=== PATIENT | female | born 1965 | race Caucasian/White ===

== ENCOUNTER 2017-07-21 11:28 | Inpatient (IN) | payer BC ==
[~2017-07-21] VITALS: Ht 162.6 cm; Wt 83.2 kg
[~2017-07-21 11:28] MED LIST: ASPI-630 PO; ATORVASTATIN CA80 MG PO; CARV25TA2 PO; CHOL2000 PO; LISI-334 PO; METF-620 PO
[2017-07-21] MEDS ORDERED: ASPIRIN CHEWABLE 81 MG TABLET. PO ONE (12:00)
[2017-07-21 12:35] LABS: BASO # 0.1 x10^3/uL (0.0-0.2); BASO % 1 % (0-3); EOS % 2 % (0-3); HEMATOCRIT 39.1 % (36.0-47.0); LYMPH % 20 % (24-48); MEAN CORPUSCULAR HEMOGLOBIN 30 pg (25-35); MEAN CORPUSCULAR HGB CONC 33 g/dL (31-37); MEAN CORPUSCULAR VOLUME 90 fL (79-100); MONO % 7 % (0-9); NEUT % 71 % (31-73); PLATELET COUNT 333 x10^3/uL (140-400); RED BLOOD COUNT 4.33 x10^6/uL (3.50-5.40); WHITE BLOOD COUNT 14.6 x10^3/uL (4.0-11.0)
[2017-07-21 12:39] LABS: CALCIUM 9.7 mg/dL (8.5-10.1); CREATININE 0.8 mg/dL (0.6-1.0); POTASSIUM 4.3 mmol/L (3.5-5.1)
[2017-07-21 12:45] LABS: ALBUMIN 3.6 g/dL (3.4-5.0); DIRECT BILIRUBIN 0.1 mg/dL (0.0-0.2); TOTAL PROTEIN 7.6 g/dL (6.4-8.2)
--- NOTE | 2017-07-21 12:50 | EKG ---
[facility] [address] [place] [address] Test Date: 2017-07-21 Test Time: 11:39:28 Pat Name: JO KAUR Department: Room: Gender: F Aircraft Structural Repairer: : 1965 Requested By: Nova PEREZ Order Number: [id number] Reading MD: Maya Oconnor Measurements Intervals [place] Rate: 79 P: 0 IN: 128 QRS: -59 QRSD: 70 T: 1 QT: 408 QTc: 469 Interpretive Statements DUAL CHAMBER PACEMAKER A AND V PACED AT 80 PER MIN Electronically Signed On 07-25-2017 9:14:50 CDT by Maya Oconnor
--- NOTE | 2017-07-21 13:05 | RAD ---
Portable chest, 07/21/2017: History: Chest pain Comparison is made to a study from 09/14/2015. A left-sided transvenous pacemaker remains in place with 3 leads extending into the heart. The heart is at the upper limits of normal in size. The pulmonary vascularity is normal. No pulmonary infiltrates are seen. There is no evidence of pleural fluid. IMPRESSION: 1. Borderline cardiomegaly. 2. No acute abnormality is detected.
--- NOTE | 2017-07-21 14:41 | PHYS DOC ---
Past Medical History Past Medical History: Bronchitis, Diabetes-Type II, High Cholesterol, Hypertension Additional Past Medical Histor: non-ischemic cardiomyopathy, URETHRAL STENT Past Surgical History: Pacemaker Additional Past Surgical Histo: left eye retina Alcohol Use: None Drug Use: None Adult General Chief Complaint Chief Complaint: CHEST WALL PAIN HPI HPI Patient is a 51 year old email with the central chest discomfort and shortness of breath that has been ongoing for 2 weeks and is getting progressively worse. Patient denies any fevers, chills, rashes, sick contacts. Patient has not had recent catheterization or stress test. Last time she had a stress test was 3 years ago. Patient denies any new leg swelling or leg pain. Patient does not describe any radiation of the pain or nausea or vomiting. Review of Systems Review of Systems Constitutional: Denies fever or chills [] HENT: Denies nasal congestion or sore throat no neck pain Respiratory: Yes to shortness of air Cardiovascular: No additional information not addressed in HPI [] GI: Denies abdominal pain, nausea, vomiting, bloody stools or diarrhea [] : Denies dysuria or hematuria [] Musculoskeletal: Denies back pain or joint pain [] Integument: Denies rash or skin lesions [] Neurologic: Denies headache, focal weakness or sensory changes [] Current Medications Current Medications Current Medications Medications (Trade) Dose Ordered Sig/Margot Start Time Stop Time Status Last Admin Dose Admin Aspirin (Children'S Aspirin) 324 mg 1X ONCE 07/21/17 12:00 07/21/17 12:01 DC 07/21/17 12:03 324 MG Allergies Allergies Allergies Coded Allergies Type Severity Reaction Last Updated Verified hydrocodone Adverse Reaction Intermediate "nausea/vomiting" 06/13/15 Yes Physical Exam Physical Exam Constitutional: Well developed, well nourished, no acute distress, non-toxic appearance. [] HENT: Normocephalic, atraumatic, , oropharynx moist, no oral exudates, nose normal. [] Eyes: EOMI, conjunctiva normal, no discharge. [] Neck: Normal range of motion, no tenderness, supple, no stridor. No JVD Cardiovascular:Heart rate regular rhythm, no murmur, normal perfusion, equal pulses Lungs & Thorax: Bilateral breath sounds clear to auscultation, no tachypnea Abdomen: Bowel sounds normal, soft, no tenderness, no masses, no pulsatile masses. [] Skin: Warm, dry, no erythema, no rash. [] Back: No tenderness, no CVA tenderness. [] Extremities: No tenderness, no cyanosis, no DVT, ROM intact, no edema. [] Neurologic: Alert and oriented X 3, normal motor function, , no focal deficits noted. [] Psychologic: Affect normal, judgement normal, mood normal. [] Current Patient Data Vital Signs Vital Signs Date Time Temp Pulse Resp B/P (MAP) Pulse Ox O2 Delivery O2 Flow Rate FiO2 07/21/17 11:40 98.4 71 16 139/65 (89) 98 Room Air 98.4 Lab Values Laboratory Tests Test 07/21/17 12:20 White Blood Count 14.6 x10^3/uL (4.0-11.0) H Red Blood Count 4.33 x10^6/uL (3.50-5.40) Hemoglobin 13.0 g/dL (12.0-15.5) Hematocrit 39.1 % (36.0-47.0) Mean Corpuscular Volume 90 fL (79-100) Mean Corpuscular Hemoglobin 30 pg (25-35) Mean Corpuscular Hemoglobin Concent 33 g/dL (31-37) Red Cell Distribution Width 13.0 % (11.5-14.5) Platelet Count 333 x10^3/uL (140-400) Neutrophils (%) (Auto) 71 % (31-73) Lymphocytes (%) (Auto) 20 % (24-48) L Monocytes (%) (Auto) 7 % (0-9) Eosinophils (%) (Auto) 2 % (0-3) Basophils (%) (Auto) 1 % (0-3) Neutrophils # (Auto) 10.3 x10^3uL (1.8-7.7) H Lymphocytes # (Auto) 3.0 x10^3/uL (1.0-4.8) Monocytes # (Auto) 1.0 x10^3/uL (0.0-1.1) Eosinophils # (Auto) 0.2 x10^3/uL (0.0-0.7) Basophils # (Auto) 0.1 x10^3/uL (0.0-0.2) Sodium Level 139 mmol/L (136-145) Potassium Level 4.3 mmol/L (3.5-5.1) Chloride Level 104 mmol/L (98-107) Carbon Dioxide Level 21 mmol/L (21-32) Anion Gap 14 (6-14) Blood Urea Nitrogen 19 mg/dL (7-20) Creatinine 0.8 mg/dL (0.6-1.0) Estimated GFR (Cockcroft-Gault) 75.0 Glucose Level 162 mg/dL (70-99) H Calcium Level 9.7 mg/dL (8.5-10.1) Total Bilirubin 1.0 mg/dL (0.2-1.0) Direct Bilirubin 0.1 mg/dL (0.0-0.2) Aspartate Amino Transferase (AST) 14 U/L (15-37) L Alanine Aminotransferase (ALT) 37 U/L (14-59) Alkaline Phosphatase 74 U/L (46-116) Troponin I Quantitative < 0.017 ng/mL (0.000-0.055) Total Protein 7.6 g/dL (6.4-8.2) Albumin 3.6 g/dL (3.4-5.0) Laboratory Tests 07/21/17 12:20 Laboratory Tests 07/21/17 12:20 EKG EKG 1145 79 paced rhythm,no stemi, lbbb[] Radiology/Procedures Radiology/Procedures History: Chest pain Comparison is made to a study from 09/14/2015. A left-sided transvenous pacemaker remains in place with 3 leads extending into the heart. The heart is at the upper limits of normal in size. The pulmonary vascularity is normal. No pulmonary infiltrates are seen. There is no evidence of pleural fluid. IMPRESSION: 1. Borderline cardiomegaly. 2. No acute abnormality is detected.[] Course & Med Decision Making Course & Med Decision Making Pertinent Labs and Imaging studies reviewed. (See chart for details) Patient was informed regarding the plan patient is agreeable for admission for telemetry in office. Patient has been discussed with cardiology who recommends admission for patient to the stress test can be done in the morning. (Dr Augustin's PA) Patient has been admitted to the PCP Dick [] Christa Disclaimer Dragon Disclaimer This electronic medical record was generated, in whole or in part, using a voice recognition dictation system. Departure Departure Impression: Primary Impression: Chest pain Additional Impression: Dyspnea Disposition: ADMITTED INPATIENT Admitting Physician: Yrn Serrano Condition: STABLE Referrals: YRN SERRANO MD (PCP) Problem Qualifiers Nova PEREZ MD Jul 21, 2017 14:40
[2017-07-21] MEDS ORDERED: ONDANSETRON PF 4 MG/2 ML VIAL. IV PRN (14:45)
--- NOTE | 2017-07-21 15:39 | PDOC2 ---
CARDIAC CONSULT DATE OF CONSULT Date of Consult DATE: 07/21/17 TIME: 15:12 REASON FOR CONSULT Reason for Consult: Chest pain REFERRING PHYSICIAN Referring Physician: Bang SOURCE Source: Chart review, Patient HISTORY OF PRESENT ILLNESS HISTORY OF PRESENT ILLNESS This is a pleasant 51 yo female admitted for complains of chest tightness. Reports that in the last 2 weeks she has been feeling this tightness kind of like band type sensation around her rib cage region. Reports of intermittent PND but no orthopnea but she does lay on her side and not supine. She has been noted to be snoring frequently. also noted with bloating and slight edema to her LE. Denies any radiating discomfort from her chest but positive for nausea and SOA which started about a week ago. It does not hurt when she takes a deep breath but it feels like she is catching her breath. Denies any overhydration and no fluids >2L and she watches her salt intake. She does take her cardiac meds regularly. She is significant for NICM. She has a BiV/INDUSTRIAL MAINTENANCE MECHANIC-p. Denies any recent long distance travel, falls, injury. No hx of VTE, CAD. PAST MEDICAL HISTORY Cardiovascular: AFIB (paroxysmal), CHF, HTN, Hyperlipidemia, Other (NICM) Pulmonary: No pertinent hx CENTRAL NERVOUS SYSTEM: Other (No pertinent history) Heme/Onc: No pertinent hx Hepatobiliary: No pertinent hx Psych: No pertinent hx Musculoskeletal: Osteoarthritis Rheumatologic: No pertinent hx Infectious disease: No pertinent hx ENT: Allergic Rhinitis, Other (left detached retina/blind) Renal/: Chronic renal insuff (CKD2) Endocrine: Diabetes (2) Dermatology: No pertinent hx PAST SURGICAL HISTORY Past Surgical History: Pacemaker (Bi-V/ICD 2003 and recent gen change 4 yrs ago ), Other (ureteral stent) FAMILY HISTORY Family History: Coronary Artery Disease, Heart Disease (mother) SOCIAL HISTORY Smoke: No ALCOHOL: none Drugs: None Lives: with Family CURRENT MEDICATIONS CURRENT MEDICATIONS Current Medications Medications (Trade) Dose Ordered Sig/Margot Route PRN Reason Start Time Stop Time Status Last Admin Dose Admin Aspirin (Children'S Aspirin) 324 mg 1X ONCE PO 07/21/17 12:00 07/21/17 12:01 DC 07/21/17 12:03 ALLERGIES ALLERGIES: Coded Allergies: hydrocodone (Verified Adverse Reaction, Intermediate, "nausea/vomiting", ) ROS Review of System 14 point ROS evaluated with pertinent positives noted per HPI PHYSICAL EXAM General: Alert, Oriented X3, Cooperative, No acute distress HEENT: Atraumatic, Mucous membr. moist/pink Lungs: Clear to auscultation, Normal air movement Heart: Regular rate (B--V pacing), Normal S1, Normal S2 Abdomen: Soft, No tenderness Extremities: No cyanosis, Other (1-2+ bilateral LE pitting edema) Skin: No breakdown, No significant lesion Neuro: Normal speech, Sensation intact Psych/Mental Status: Mental status NL, Mood NL MUSCULOSKELETAL: Osteoarthritic changes both hands VITALS VITALS Vital Signs Date Time Temp Pulse Resp B/P (MAP) Pulse Ox O2 Delivery O2 Flow Rate FiO2 07/21/17 11:40 98.4 71 16 139/65 (89) 98 Room Air 98.4 LABS Lab: Laboratory Tests Test 07/21/17 12:20 White Blood Count 14.6 x10^3/uL (4.0-11.0) Red Blood Count 4.33 x10^6/uL (3.50-5.40) Hemoglobin 13.0 g/dL (12.0-15.5) Hematocrit 39.1 % (36.0-47.0) Mean Corpuscular Volume 90 fL (79-100) Mean Corpuscular Hemoglobin 30 pg (25-35) Mean Corpuscular Hemoglobin Concent 33 g/dL (31-37) Red Cell Distribution Width 13.0 % (11.5-14.5) Platelet Count 333 x10^3/uL (140-400) Neutrophils (%) (Auto) 71 % (31-73) Lymphocytes (%) (Auto) 20 % (24-48) Monocytes (%) (Auto) 7 % (0-9) Eosinophils (%) (Auto) 2 % (0-3) Basophils (%) (Auto) 1 % (0-3) Neutrophils # (Auto) 10.3 x10^3uL (1.8-7.7) Lymphocytes # (Auto) 3.0 x10^3/uL (1.0-4.8) Monocytes # (Auto) 1.0 x10^3/uL (0.0-1.1) Eosinophils # (Auto) 0.2 x10^3/uL (0.0-0.7) Basophils # (Auto) 0.1 x10^3/uL (0.0-0.2) Sodium Level 139 mmol/L (136-145) Potassium Level 4.3 mmol/L (3.5-5.1) Chloride Level 104 mmol/L (98-107) Carbon Dioxide Level 21 mmol/L (21-32) Anion Gap 14 (6-14) Blood Urea Nitrogen 19 mg/dL (7-20) Creatinine 0.8 mg/dL (0.6-1.0) Estimated GFR (Cockcroft-Gault) 75.0 Glucose Level 162 mg/dL (70-99) Calcium Level 9.7 mg/dL (8.5-10.1) Total Bilirubin 1.0 mg/dL (0.2-1.0) Direct Bilirubin 0.1 mg/dL (0.0-0.2) Aspartate Amino Transf (AST/SGOT) 14 U/L (15-37) Alanine Aminotransferase (ALT/SGPT) 37 U/L (14-59) Alkaline Phosphatase 74 U/L (46-116) Troponin I Quantitative < 0.017 ng/mL (0.000-0.055) Total Protein 7.6 g/dL (6.4-8.2) Albumin 3.6 g/dL (3.4-5.0) ECHOCARDIOGRAM ECHOCARDIOGRAM <Conclusion> The systolic function is moderately impaired. The Ejection Fraction is 35-40%. There is a pacemaker lead in the right ventricle. Doppler and Color Flow revealed mild tricuspid regurgitation. The PA pressure was estimated at 28 mmHg. DATE: 12/22/16905 ASSESSMENT/PLAN ASSESSMENT/PLAN 1. Chest pain: mixed features 2. Acute on chronic systolic CHF: likely SAWYER is a factor 3. NICM: Recent TTE with EF 35-40% 4. 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 presently BiV pacing. Normal function device per interrogation. 5. Hx of PSVT: notable for SVT/atrial flutter from past interrogation but none noted with current check. 6. HTN: controlled 7. DM2 8. Suspect CKD2 Recommendations 1. TSH, lipids, Mg, A1C, trend troponin. UA 2. Lasix IV x1 3. Will need outpt SAWYER workup 4. MPI tomorrow. 5. Continue with home ECASA, coreg, and lisinopril, lipitor Problems: LEONIDAS WHITE GLASS SANDER Jul 21, 2017 15:39
[2017-07-21] MEDS ORDERED: FUROSEMIDE 40 MG/4 ML VIAL. IVP ONE (15:45)
[2017-07-21] MEDS ORDERED: MAGNESIUM SULFATE 4GM 100 ML IV ONE (16:45)
[2017-07-21 16:49] VITALS: BP 108/62
[2017-07-21] MEDS: CARVEDILOL 12.5 MG TABLET. PO SCH (17:58)
[2017-07-21 19:35] VITALS: BP 94/42
[2017-07-21 20:06] VITALS: BP 94/42
[2017-07-21] MEDS: ATORVASTATIN CALCIUM 40 MG TABLET. PO SCH (20:12)
[2017-07-21 23:20] VITALS: BP 92/49
[2017-07-22 03:10] VITALS: BP 108/49
[2017-07-22 03:26] LABS: BASO % 0 % (0-3); EOS % 2 % (0-3); HEMOGLOBIN 12.9 g/dL (12.0-15.5); LYMPH # 3.3 x10^3/uL (1.0-4.8); LYMPH % 24 % (24-48); MEAN CORPUSCULAR HEMOGLOBIN 30 pg (25-35); MEAN CORPUSCULAR HGB CONC 33 g/dL (31-37); MEAN CORPUSCULAR VOLUME 90 fL (79-100); MONO % 10 % (0-9); NEUT % 65 % (31-73); PLATELET COUNT 355 x10^3/uL (140-400); RED BLOOD COUNT 4.35 x10^6/uL (3.50-5.40); RED CELL DISTRIBUTION WIDTH 13.1 % (11.5-14.5); WHITE BLOOD COUNT 13.6 x10^3/uL (4.0-11.0)
[2017-07-22 03:55] LABS: CALCIUM 9.9 mg/dL (8.5-10.1); CREATININE 1.3 mg/dL (0.6-1.0); GFR 42.8; POTASSIUM 4.9 mmol/L (3.5-5.1)
[2017-07-22 07:00] VITALS: BP 98/54
[2017-07-22] MEDS ORDERED: REGADENOSON 0.4 MG/5 ML DISP.SYRIN. IV ONE ×2 (08:05→08:30)
[2017-07-22] MEDS ORDERED: ASPIRIN CHEWABLE 81 MG TABLET. PO SCH (09:00)
--- NOTE | 2017-07-22 10:15 | PDOC1 ---
History and Physical Date of Admission Date of Admission 07/21/17 Identification/Chief Complaint Chief Complaint chest pain Problems: Source Source: Chart review, Patient History of Present Illness History of Present Illness Patient is a 51 year old Female with the central chest discomfort and shortness of breath that has been ongoing for 2 weeks and is getting progressively worse feeling this tightness kind of like band type sensation around her rib cage region.. Patient denies any fevers, chills, rashes, sick contacts some SOB starting week ago. Last time she had a stress test was 3 years ago. Patient denies any new leg swelling or leg pain. Patient does not describe any radiation of the pain or nausea or vomiting. Past Medical History Cardiovascular: AFIB (paroxysmal), CHF, HTN, Hyperlipidemia, Other (NICM) Pulmonary: No pertinent hx CENTRAL NERVOUS SYSTEM: Other (No pertinent history) Heme/Onc: No pertinent hx Hepatobiliary: No pertinent hx Psych: No pertinent hx Rheumatologic: No pertinent hx Infectious disease: No pertinent hx ENT: Allergic Rhinitis, Other (left detached retina/blind) Renal/: Chronic renal insuff (CKD2) Endocrine: Diabetes (2) Dermatology: No pertinent hx Past Surgical History Past Surgical History: Pacemaker (Bi-V/ICD 2003 and recent gen change 4 yrs ago ), Other (ureteral stent) Family History Family History: Coronary Artery Disease, Heart Disease (mother) Social History Smoke: No ALCOHOL: none Drugs: None Current Problem List Problem List Problems Medical Problems: (1) Dyspnea Status: Acute Current Medications Current Medications Current Medications Medications (Trade) Dose Ordered Sig/Margot Start Time Stop Time Status Last Admin Dose Admin Aspirin (Children'S Aspirin) 81 mg DAILY 07/22/17 09:00 07/22/17 09:00 DC Aspirin (Ecotrin) 81 mg [id number] 07/22/17 08:00 Atorvastatin Calcium (Lipitor) 80 mg QHS 07/21/17 21:00 07/21/17 20:12 80 MG Carvedilol (Coreg) 25 mg BIDWMEALS 07/21/17 17:00 07/21/17 17:58 25 MG Furosemide (Lasix) 40 mg 1X ONCE 07/21/17 15:45 07/21/17 15:46 DC 07/21/17 15:52 40 MG Lisinopril (Prinivil) 20 mg DAILY 07/22/17 09:00 Magnesium Sulfate/ Dextrose 100 ml @ 25 mls/hr 1X ONCE 07/21/17 16:45 07/21/17 20:44 DC 07/21/17 17:58 25 MLS/HR Ondansetron HCl (Zofran) 4 mg PRN Q8HRS PRN 07/21/17 14:45 07/22/17 14:44 Regadenoson (Lexiscan) 0.4 mg STK-MED ONCE 07/22/17 08:05 07/22/17 08:06 DC Allergies Allergies Allergies Coded Allergies Type Severity Reaction Last Updated Verified hydrocodone Adverse Reaction Intermediate "nausea/vomiting" 06/13/15 Yes ROS Review of System CONSTITUTIONAL: No fever or chills EYES: No recent changes SKIN: No rash or itching CARDIOVASCULAR: see HPI RESPIRATORY: some VUONG and SOB during last week, no cough GASTROINTESTINAL: No nausea, vomiting or abdominal pain NEUROLOGICAL: No headaches or weakness ENDOCRINE: No cold or heat intolerance GENITOURINARY: No urgency or frequency of urination MUSCULOSKELETAL: chronic arthritis LYMPHATICS: No enlarged lymph nodes Physical Exam Physical Exam GEN.: No apparent distress. Alert and oriented. HEENT: Head is normocephalic, atraumatic NECK: Supple. LUNGS: Clear to auscultation. HEART: RRR, Peripheral pulses intact ABDOMEN: Soft, nontender. Positive bowel sounds. EXTREMITIES: Without any cyanosis. NEUROLOGIC: Normal speech, normal tone PSYCHIATRIC: Normal affect, normal mood. SKIN: No ulcerations Vitals Vitals Vital Signs Date Time Temp Pulse Resp B/P (MAP) Pulse Ox O2 Delivery O2 Flow Rate FiO2 07/22/17 07:00 98.0 71 18 98/54 (69) 98 Room Air 98.0 Labs Labs Laboratory Tests Test 07/21/17 12:20 07/21/17 14:43 07/21/17 17:40 07/21/17 17:43 White Blood Count 14.6 x10^3/uL (4.0-11.0) Red Blood Count 4.33 x10^6/uL (3.50-5.40) Hemoglobin 13.0 g/dL (12.0-15.5) Hematocrit 39.1 % (36.0-47.0) Mean Corpuscular Volume 90 fL (79-100) Mean Corpuscular Hemoglobin 30 pg (25-35) Mean Corpuscular Hemoglobin Concent 33 g/dL (31-37) Red Cell Distribution Width 13.0 % (11.5-14.5) Platelet Count 333 x10^3/uL (140-400) Neutrophils (%) (Auto) 71 % (31-73) Lymphocytes (%) (Auto) 20 % (24-48) Monocytes (%) (Auto) 7 % (0-9) Eosinophils (%) (Auto) 2 % (0-3) Basophils (%) (Auto) 1 % (0-3) Neutrophils # (Auto) 10.3 x10^3uL (1.8-7.7) Lymphocytes # (Auto) 3.0 x10^3/uL (1.0-4.8) Monocytes # (Auto) 1.0 x10^3/uL (0.0-1.1) Eosinophils # (Auto) 0.2 x10^3/uL (0.0-0.7) Basophils # (Auto) 0.1 x10^3/uL (0.0-0.2) Sodium Level 139 mmol/L (136-145) Potassium Level 4.3 mmol/L (3.5-5.1) Chloride Level 104 mmol/L (98-107) Carbon Dioxide Level 21 mmol/L (21-32) Anion Gap 14 (6-14) Blood Urea Nitrogen 19 mg/dL (7-20) Creatinine 0.8 mg/dL (0.6-1.0) Estimated GFR (Cockcroft-Gault) 75.0 Glucose Level 162 mg/dL (70-99) Hemoglobin A1c 6.2 % (4.8-5.6) Calcium Level 9.7 mg/dL (8.5-10.1) Magnesium Level 1.3 mg/dL (1.8-2.4) Total Bilirubin 1.0 mg/dL (0.2-1.0) Direct Bilirubin 0.1 mg/dL (0.0-0.2) Aspartate Amino Transf (AST/SGOT) 14 U/L (15-37) Alanine Aminotransferase (ALT/SGPT) 37 U/L (14-59) Alkaline Phosphatase 74 U/L (46-116) Troponin I Quantitative < 0.017 ng/mL (0.000-0.055) < 0.017 ng/mL (0.000-0.055) < 0.017 ng/mL (0.000-0.055) SP-Ksa-B-Type Natriuretic Peptide 102 pg/mL (0-124) Total Protein 7.6 g/dL (6.4-8.2) Albumin 3.6 g/dL (3.4-5.0) Thyroid Stimulating Hormone (TSH) 5.622 uIU/mL (0.358-3.74) Glucose (Fingerstick) 96 mg/dL (70-99) Test 07/21/17 20:41 07/22/17 03:00 07/22/17 08:03 Glucose (Fingerstick) 146 mg/dL (70-99) 147 mg/dL (70-99) White Blood Count 13.6 x10^3/uL (4.0-11.0) Red Blood Count 4.35 x10^6/uL (3.50-5.40) Hemoglobin 12.9 g/dL (12.0-15.5) Hematocrit 39.0 % (36.0-47.0) Mean Corpuscular Volume 90 fL (79-100) Mean Corpuscular Hemoglobin 30 pg (25-35) Mean Corpuscular Hemoglobin Concent 33 g/dL (31-37) Red Cell Distribution Width 13.1 % (11.5-14.5) Platelet Count 355 x10^3/uL (140-400) Neutrophils (%) (Auto) 65 % (31-73) Lymphocytes (%) (Auto) 24 % (24-48) Monocytes (%) (Auto) 10 % (0-9) Eosinophils (%) (Auto) 2 % (0-3) Basophils (%) (Auto) 0 % (0-3) Neutrophils # (Auto) 8.8 x10^3uL (1.8-7.7) Lymphocytes # (Auto) 3.3 x10^3/uL (1.0-4.8) Monocytes # (Auto) 1.3 x10^3/uL (0.0-1.1) Eosinophils # (Auto) 0.2 x10^3/uL (0.0-0.7) Basophils # (Auto) 0.0 x10^3/uL (0.0-0.2) Sodium Level 139 mmol/L (136-145) Potassium Level 4.9 mmol/L (3.5-5.1) Chloride Level 101 mmol/L (98-107) Carbon Dioxide Level 27 mmol/L (21-32) Anion Gap 11 (6-14) Blood Urea Nitrogen 28 mg/dL (7-20) Creatinine 1.3 mg/dL (0.6-1.0) Estimated GFR (Cockcroft-Gault) 42.8 Glucose Level 118 mg/dL (70-99) Calcium Level 9.9 mg/dL (8.5-10.1) Troponin I Quantitative < 0.017 ng/mL (0.000-0.055) Triglycerides Level 280 mg/dL (0-150) Cholesterol Level 145 mg/dL (0-200) LDL Cholesterol, Calculated 53 mg/dL (0-100) VLDL Cholesterol, Calculated 56 mg/dL (0-40) Non-HDL Cholesterol Calculated 109 mg/dL (0-129) HDL Cholesterol 36 mg/dL (40-60) Cholesterol/HDL Ratio 4.0 Laboratory Tests Test 07/21/17 12:20 07/21/17 14:43 07/21/17 17:40 07/21/17 17:43 White Blood Count 14.6 x10^3/uL (4.0-11.0) Red Blood Count 4.33 x10^6/uL (3.50-5.40) Hemoglobin 13.0 g/dL (12.0-15.5) Hematocrit 39.1 % (36.0-47.0) Mean Corpuscular Volume 90 fL (79-100) Mean Corpuscular Hemoglobin 30 pg (25-35) Mean Corpuscular Hemoglobin Concent 33 g/dL (31-37) Red Cell Distribution Width 13.0 % (11.5-14.5) Platelet Count 333 x10^3/uL (140-400) Neutrophils (%) (Auto) 71 % (31-73) Lymphocytes (%) (Auto) 20 % (24-48) Monocytes (%) (Auto) 7 % (0-9) Eosinophils (%) (Auto) 2 % (0-3) Basophils (%) (Auto) 1 % (0-3) Neutrophils # (Auto) 10.3 x10^3uL (1.8-7.7) Lymphocytes # (Auto) 3.0 x10^3/uL (1.0-4.8) Monocytes # (Auto) 1.0 x10^3/uL (0.0-1.1) Eosinophils # (Auto) 0.2 x10^3/uL (0.0-0.7) Basophils # (Auto) 0.1 x10^3/uL (0.0-0.2) Sodium Level 139 mmol/L (136-145) Potassium Level 4.3 mmol/L (3.5-5.1) Chloride Level 104 mmol/L (98-107) Carbon Dioxide Level 21 mmol/L (21-32) Anion Gap 14 (6-14) Blood Urea Nitrogen 19 mg/dL (7-20) Creatinine 0.8 mg/dL (0.6-1.0) Estimated GFR (Cockcroft-Gault) 75.0 Glucose Level 162 mg/dL (70-99) Hemoglobin A1c 6.2 % (4.8-5.6) Calcium Level 9.7 mg/dL (8.5-10.1) Magnesium Level 1.3 mg/dL (1.8-2.4) Total Bilirubin 1.0 mg/dL (0.2-1.0) Direct Bilirubin 0.1 mg/dL (0.0-0.2) Aspartate Amino Transf (AST/SGOT) 14 U/L (15-37) Alanine Aminotransferase (ALT/SGPT) 37 U/L (14-59) Alkaline Phosphatase 74 U/L (46-116) Troponin I Quantitative < 0.017 ng/mL (0.000-0.055) < 0.017 ng/mL (0.000-0.055) < 0.017 ng/mL (0.000-0.055) CW-Cgz-Q-Type Natriuretic Peptide 102 pg/mL (0-124) Total Protein 7.6 g/dL (6.4-8.2) Albumin 3.6 g/dL (3.4-5.0) Thyroid Stimulating Hormone (TSH) 5.622 uIU/mL (0.358-3.74) Glucose (Fingerstick) 96 mg/dL (70-99) Test 07/21/17 20:41 07/22/17 03:00 9/6/17 08:03 Glucose (Fingerstick) 146 mg/dL (70-99) 147 mg/dL (70-99) White Blood Count 13.6 x10^3/uL (4.0-11.0) Red Blood Count 4.35 x10^6/uL (3.50-5.40) Hemoglobin 12.9 g/dL (12.0-15.5) Hematocrit 39.0 % (36.0-47.0) Mean Corpuscular Volume 90 fL (79-100) Mean Corpuscular Hemoglobin 30 pg (25-35) Mean Corpuscular Hemoglobin Concent 33 g/dL (31-37) Red Cell Distribution Width 13.1 % (11.5-14.5) Platelet Count 355 x10^3/uL (140-400) Neutrophils (%) (Auto) 65 % (31-73) Lymphocytes (%) (Auto) 24 % (24-48) Monocytes (%) (Auto) 10 % (0-9) Eosinophils (%) (Auto) 2 % (0-3) Basophils (%) (Auto) 0 % (0-3) Neutrophils # (Auto) 8.8 x10^3uL (1.8-7.7) Lymphocytes # (Auto) 3.3 x10^3/uL (1.0-4.8) Monocytes # (Auto) 1.3 x10^3/uL (0.0-1.1) Eosinophils # (Auto) 0.2 x10^3/uL (0.0-0.7) Basophils # (Auto) 0.0 x10^3/uL (0.0-0.2) Sodium Level 139 mmol/L (136-145) Potassium Level 4.9 mmol/L (3.5-5.1) Chloride Level 101 mmol/L (98-107) Carbon Dioxide Level 27 mmol/L (21-32) Anion Gap 11 (6-14) Blood Urea Nitrogen 28 mg/dL (7-20) Creatinine 1.3 mg/dL (0.6-1.0) Estimated GFR (Cockcroft-Gault) 42.8 Glucose Level 118 mg/dL (70-99) Calcium Level 9.9 mg/dL (8.5-10.1) Troponin I Quantitative < 0.017 ng/mL (0.000-0.055) Triglycerides Level 280 mg/dL (0-150) Cholesterol Level 145 mg/dL (0-200) LDL Cholesterol, Calculated 53 mg/dL (0-100) VLDL Cholesterol, Calculated 56 mg/dL (0-40) Non-HDL Cholesterol Calculated 109 mg/dL (0-129) HDL Cholesterol 36 mg/dL (40-60) Cholesterol/HDL Ratio 4.0 VTE Prophylaxis Ordered VTE Prophylaxis Devices: No VTE Pharmacological Prophylaxi: No Assessment/Plan Assessment/Plan 1- chest pain, admitted serial enzymes and cardiology consult 2-HTN 3-obesity consider SAWYER 4-acute on chronic systolic CHF 4-DM II 5-CKD II YRN SERRANO MD Jul 22, 2017 10:15
[2017-07-22] MEDS: ASPIRIN ENTERIC COATED 81 MG TABLET.DR. PO SCH (10:51)
[2017-07-22] MEDS: LISINOPRIL 20 MG TABLET PO SCH (10:56)
[2017-07-22] MEDS: CARVEDILOL 12.5 MG TABLET. PO SCH ×3 (10:57→17:07)
[2017-07-22 11:00] VITALS: BP 114/82
[2017-07-22] MEDS ORDERED: CARV12.52 PO (11:02)
--- NOTE | 2017-07-22 12:11 | PDOC ---
LEONIDAS WHITE BAT PERSON 07/22/17 1211: CARDIO Progress Notes Date and Time Date of Service 07/22/2017 Time of Evaluation 1150 Subjective Subjective: No Chest Pain, No shortness of breath, No Palpitations, No Dizziness, Other Vitals Vitals Vital Signs Date Time Temp Pulse Resp B/P (MAP) Pulse Ox O2 Delivery O2 Flow Rate FiO2 07/22/17 11:02 74 07/22/17 10:56 114/82 07/22/17 08:00 Room Air 07/22/17 07:00 98.0 18 98 98.0 Weight Weight [ ] Laboratory Labs Laboratory Tests Test 07/21/17 12:20 07/21/17 14:43 07/21/17 17:40 07/21/17 17:43 White Blood Count 14.6 x10^3/uL (4.0-11.0) Red Blood Count 4.33 x10^6/uL (3.50-5.40) Hemoglobin 13.0 g/dL (12.0-15.5) Hematocrit 39.1 % (36.0-47.0) Mean Corpuscular Volume 90 fL (79-100) Mean Corpuscular Hemoglobin 30 pg (25-35) Mean Corpuscular Hemoglobin Concent 33 g/dL (31-37) Red Cell Distribution Width 13.0 % (11.5-14.5) Platelet Count 333 x10^3/uL (140-400) Neutrophils (%) (Auto) 71 % (31-73) Lymphocytes (%) (Auto) 20 % (24-48) Monocytes (%) (Auto) 7 % (0-9) Eosinophils (%) (Auto) 2 % (0-3) Basophils (%) (Auto) 1 % (0-3) Neutrophils # (Auto) 10.3 x10^3uL (1.8-7.7) Lymphocytes # (Auto) 3.0 x10^3/uL (1.0-4.8) Monocytes # (Auto) 1.0 x10^3/uL (0.0-1.1) Eosinophils # (Auto) 0.2 x10^3/uL (0.0-0.7) Basophils # (Auto) 0.1 x10^3/uL (0.0-0.2) Sodium Level 139 mmol/L (136-145) Potassium Level 4.3 mmol/L (3.5-5.1) Chloride Level 104 mmol/L (98-107) Carbon Dioxide Level 21 mmol/L (21-32) Anion Gap 14 (6-14) Blood Urea Nitrogen 19 mg/dL (7-20) Creatinine 0.8 mg/dL (0.6-1.0) Estimated GFR (Cockcroft-Gault) 75.0 Glucose Level 162 mg/dL (70-99) Hemoglobin A1c 6.2 % (4.8-5.6) Calcium Level 9.7 mg/dL (8.5-10.1) Magnesium Level 1.3 mg/dL (1.8-2.4) Total Bilirubin 1.0 mg/dL (0.2-1.0) Direct Bilirubin 0.1 mg/dL (0.0-0.2) Aspartate Amino Transf (AST/SGOT) 14 U/L (15-37) Alanine Aminotransferase (ALT/SGPT) 37 U/L (14-59) Alkaline Phosphatase 74 U/L (46-116) Troponin I Quantitative < 0.017 ng/mL (0.000-0.055) < 0.017 ng/mL (0.000-0.055) < 0.017 ng/mL (0.000-0.055) QU-Zxz-W-Type Natriuretic Peptide 102 pg/mL (0-124) Total Protein 7.6 g/dL (6.4-8.2) Albumin 3.6 g/dL (3.4-5.0) Thyroid Stimulating Hormone (TSH) 5.622 uIU/mL (0.358-3.74) Glucose (Fingerstick) 96 mg/dL (70-99) Test 07/21/17 20:41 07/22/17 03:00 07/22/17 08:03 Glucose (Fingerstick) 146 mg/dL (70-99) 147 mg/dL (70-99) White Blood Count 13.6 x10^3/uL (4.0-11.0) Red Blood Count 4.35 x10^6/uL (3.50-5.40) Hemoglobin 12.9 g/dL (12.0-15.5) Hematocrit 39.0 % (36.0-47.0) Mean Corpuscular Volume 90 fL (79-100) Mean Corpuscular Hemoglobin 30 pg (25-35) Mean Corpuscular Hemoglobin Concent 33 g/dL (31-37) Red Cell Distribution Width 13.1 % (11.5-14.5) Platelet Count 355 x10^3/uL (140-400) Neutrophils (%) (Auto) 65 % (31-73) Lymphocytes (%) (Auto) 24 % (24-48) Monocytes (%) (Auto) 10 % (0-9) Eosinophils (%) (Auto) 2 % (0-3) Basophils (%) (Auto) 0 % (0-3) Neutrophils # (Auto) 8.8 x10^3uL (1.8-7.7) Lymphocytes # (Auto) 3.3 x10^3/uL (1.0-4.8) Monocytes # (Auto) 1.3 x10^3/uL (0.0-1.1) Eosinophils # (Auto) 0.2 x10^3/uL (0.0-0.7) Basophils # (Auto) 0.0 x10^3/uL (0.0-0.2) Sodium Level 139 mmol/L (136-145) Potassium Level 4.9 mmol/L (3.5-5.1) Chloride Level 101 mmol/L (98-107) Carbon Dioxide Level 27 mmol/L (21-32) Anion Gap 11 (6-14) Blood Urea Nitrogen 28 mg/dL (7-20) Creatinine 1.3 mg/dL (0.6-1.0) Estimated GFR (Cockcroft-Gault) 42.8 Glucose Level 118 mg/dL (70-99) Calcium Level 9.9 mg/dL (8.5-10.1) Troponin I Quantitative < 0.017 ng/mL (0.000-0.055) Triglycerides Level 280 mg/dL (0-150) Cholesterol Level 145 mg/dL (0-200) LDL Cholesterol, Calculated 53 mg/dL (0-100) VLDL Cholesterol, Calculated 56 mg/dL (0-40) Non-HDL Cholesterol Calculated 109 mg/dL (0-129) HDL Cholesterol 36 mg/dL (40-60) Cholesterol/HDL Ratio 4.0 Physical Exam HEENT: Neck Supple W Full Motion Chest: Symmetric LUNGS: Clear to Auscultation Heart: S1S2, RRR (BiV pacing) Abdomen: Soft N/T Extremities: No Edema, No Calf Tenderness Neurology: alert, oriented, follow commands Assessment Assessment 1. Chest pain: mixed features 2. Acute on chronic systolic CHF: Peripheral edema resolved and SOA much better after x1 lasix. Likely SAWYER 3. NICM: Recent TTE with EF 35-40%. compensated. NYHA1-2 4. CAD APPLICATION SUPPORT SPECIALIST-p in situ: [employer]. presently BiV pacing. Normal function device per interrogation. 5. Hx of PSVT: notable for SVT/atrial flutter from past interrogation but none noted with current check. 6. HTN: controlled 7. DM2: A1C 6.2 8. WAQAR on CKD2: prerenal 9. Subclinical hypothyroidism: TSH 5.6 10. Intermittent dyspnea with leukocytosis: reported 1.5 months of has been cleaning fecal bedding of chicken not wearing a mask. Likely airway inflammatory issue. Defer to PCP. Recommendations 1. UOP significant overnight per staff. I & O inaccurate. Will push po fluids. No further lasix at this time 2. Will need outpt SAWYER (features noted) workup 3. MPI pending today and rule out any ischemic process. . 4. Continue with secondary prevention 6. Repeat BMP this afternoon 7. Recommend pulmonary input MONICA BUSCH MD 07/22/17 1721: CARDIO Progress Notes Assessment Assessment Patient seen and examined. Agree with RESEARCH NURSE's assessment and plan. Acute on chronic systolic heart failure better compensated. Lexiscan nuclear stress test did not show any significant ischemia. Continue workup per pulmonary team. LEONIDAS WHITE APRN Jul 22, 2017 12:11 MONICA BUSCH MD Jul 22, 2017 17:21
--- NOTE | 2017-07-22 12:57 | PDOC ---
Provider Note Provider Note DICTATED AMARA MORTON MD Jul 22, 2017 12:57
[2017-07-22] MEDS: BUDESONIDE 0.5 MG/2 ML NEBU. NEB SCH ×2 (13:00→20:02)
--- NOTE | 2017-07-22 13:04 | RAD ---
APPROVED REPORT Test Type: Pharmacological Stress Nurse/Tech: Farrah Medina R.N. Test Indications: Chest tightness and dyspnea Cardiac History: Cardiomyopathy, HTN, PPM Medications: SEE EMR Medical History: SEE EMR Resting ECG: P V-Paced Resting Heart Rate: 67 bpm Resting Blood Pressure: 112/61mmHg Pretest Chest Pain: No chest pain Nurse/Tech Notes S1S2, lungs CTA, denied chest pain or SOA. Consent: The procedure was explained to the patient in lay terms. Informed consent was witnessed. Pawel eout was entered into [employer]. History and Stress Test performed by Farrah Medina R.N. Pharm. Details Pharmacologic stress testing was performed using 0.4mg per 5ml of regadenoson given intravenously ove r 7-10 seconds. Stress Symptoms Nausea. POST EXERCISE Reason for Termination: Infusion complete Max HR: 105 bpm Max Blood Pressure: 121/61mmHg Blood Pressure response to exercise: Normal blood pressure response during stress. Chest Pain: No. Arrhythmia: No. ST Change: No. INTERPRETATION Stress EKG Conclusion: Baseline EKG showed atrial paced rhythm. No diagnostic evidence of ischemia at peak stress. No arrhythmias. Imaging Protocol IMAGE PROTOCOL: Rest Tc-99m/stress Tc-99m 1 day Rest: Stress: Viability: Radiopharm.Tc99m [id number] Sestamibi Dose12.3mCi 33.8mCi Duration 15min. 10min. Img Date 07/22/2017 07/22/2017 Inj-Img [id number]. 60min. Rest Admin Site:IV - Right ForearmAdministrator:SREE Bravo Stress Admin Site: IV - Right ForearmAdministrator: JAVAD Daly, ARRT (R)(N) STRESS DATA End Diast. Vol.98.0mlAv. Heart Rate64.0bpm End Syst. Vol.49.0mlCO Index BSA0.0L/min Myocardial Yutd372.0gEject. Chcrxvtj86.0% Stress Rates Pk. Fill Rate2.42EDV/secLVtime Pk. Fill 285.96msec Pk. Empty Rate2.87ESV/secLVtime Pk. Tekbp585.70msec 11/18 Pk. Fill0.38EDV/sec Stress Scores Regional WT1.00Summed WT22.00 Regional WM0.00Summed WM15.00 LV Perfusion Scintigraphic images showed breast attenuation artifact without any other fixed or reversible defects . Wall Motion Borderline left ventricle systolic function with ejection fraction calculated at 50%. LV Perf. Quant 17 Seg. SSS4.00 17 Seg. SRS2.00 17 Seg. SDS2.00 Stress Defect Extent (% LAD)5.00Rest Defect Extent (% LAD)2.50Rev. Defect Extent (% LAD)0.00 Stress Defect Extent (% LCX) 17.50Rest Defect Extent (% LCX)0.00Rev. Defect Extent (% LCX)0.00 Stress Defect Extent (% RCA)0.00Rest Defect Extent (% RCA)0.00Rev. Defect Extent (% RCA)0.00 Stress Defect Extent (% ELIEL)9.30Rest Defect Extent (% ELIEL)1.70Rev. Defect Extent (% ELIEL)1.70 Conclusion 1. Regadenoson cardioisotope stress test showed breast attenuation artifact without any evidence of i schemia or infarct. 2. Borderline left ventricular systolic function with ejection fraction calculated at 50%. 3. Low risk for cardiac events.
--- NOTE | 2017-07-22 13:22 | CONS ---
DATE OF CONSULTATION: ATTENDING PHYSICIAN: Dr. Linda Jennings. REASON FOR CONSULTATION: Dyspnea. HISTORY OF PRESENT ILLNESS: The patient is a 51-year-old female who has no history of tobacco use. She came into the hospital, complaining of some tightness across her chest. She says she has also been short of breath for the last 2 weeks. The patient has no significant cough. She said she did have some mild sore throat and felt like cold symptoms about a week ago and that lasted for 3 days. She also has an important history that she mentions that for the last 2 months, she has been working around chickens. 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 They had been doing this for the last 2 months. The patient says her co-worker also has a nonresolving cough. The patient was seen by Cardiology and she had a stress test and I do not have the results yet. The patient's chest x-ray did not reveal any obvious infiltrates. No history of asthma, no history of other chronic pulmonary conditions. PAST MEDICAL HISTORY: History of AFib, history of CHF, history of hypertension, hyperlipidemia and history of nonischemic cardiomyopathy. Her last echocardiogram was in 12/2016, which showed an EF of 35%-40%. PAST SURGICAL HISTORY: No recent surgeries. She had in the past pacemaker in 2003, and ureteral stent. FAMILY HISTORY: Noncontributory to lungs. SOCIAL HISTORY: Nonsmoker. ALLERGIES: HYDROCODONE. CURRENT MEDICATIONS: All reviewed, as this is in the MRAD. PHYSICAL EXAMINATION: GENERAL: She is awake, following commands, in no obvious respiratory distress. VITAL SIGNS: Blood pressure stable, pulse ox 97% on room air. NECK: Supple. LUNGS: Clear. CARDIOVASCULAR: Regular rate. ABDOMEN: Soft. EXTREMITIES: With no pitting edema. LABORATORY DATA: Reviewed. White cell count 13.6, hemoglobin 12.9 and platelets are 355. BUN is 19, creatinine 0.8. IMPRESSION: 1. Dyspnea with chest discomfort. This has been going on for last 2 weeks. Her history is also pertinent for exposure to chicken poop for the last 2 months. Her co-worker has a nonresolving cough. Her chest x-ray is clear. It is certainly possible that she may have mild acute hypersensitivity pneumonitis related to exposure to chicken poop. The patient has nonischemic cardiomyopathy, but the chest x-ray does not reveal any evidence of congestive heart failure. 2. No significant history of tobacco use. 3. Chest pain. Cardiology is following, it could be pleuritic from hypersensitivity pneumonitis. Clinically, less likely thromboembolic disease, but we will obtain D-dimer. RECOMMENDATIONS: 1. Obtain a high resolution CT chest. 2. May give a brief trial of steroids if CT chest is abnormal. In the meantime, we will add steroids, nebulizers. 3. Obtain D-dimer. 4. Further recommendations to follow. Discussed with RN. AMARA MORTON MD DR: CAREN/clovis JOB#: [id number] / [id number]
[2017-07-22 15:00] VITALS: BP 109/76
[2017-07-22 15:17] LABS: CALCIUM 9.5 mg/dL (8.5-10.1); CREATININE 0.9 mg/dL (0.6-1.0); GFR 65.5; POTASSIUM 4.3 mmol/L (3.5-5.1)
[2017-07-22] MEDS ORDERED: MAGNESIUM SULFATE 2GM 50 ML IV ONE (16:00)
--- NOTE | 2017-07-22 16:09 | RAD ---
Indication difficulty breathing. Suspect hypersensitivity pneumonitis. Chest CT examination was performed. No prior CT imaging of the chest is available. Note is made of a plain film examination of the chest yesterday. Initially noncontrast conventional images through the chest were obtained. This was followed by high-definition CT images in inspiration and expiration. All images were obtained with the patient supine. On the initial conventional images imaging through the upper abdomen appears unremarkable. There is some pericardial calcification. There are possible thyroid nodules. The finding is not certain and may be artifactual secondary to some streak artifact. If additional evaluation of the thyroid is warranted an ultrasound examination could be performed. The thoracic aorta appears unremarkable. There is no significant hilar or mediastinal adenopathy. An acute parenchymal infiltrate in either lung is not seen. There is no dominant soft tissue mass. On the high definition inspiratory and expiratory images no significant emphysematous changes or fibrotic changes are seen. There is no significant groundglass opacity. No significant air trapping is seen. IMPRESSION: The lungs appear unremarkable. There is no evidence of significant fibrotic or emphysematous change. No significant groundglass opacities are seen. Pericardial calcification PQRS Compliance Statement: One or more of the following individualized dose reduction techniques were utilized for this examination: 1. Automated exposure control 2. Adjustment of the mA and/or kV according to patient size 3. Use of iterative reconstruction technique
[2017-07-22 19:41] VITALS: BP 116/65
[2017-07-22] MEDS: ATORVASTATIN CALCIUM 40 MG TABLET. PO SCH (21:43)
[2017-07-22 22:10] VITALS: BP 96/59
[2017-07-23 02:19] VITALS: BP 102/55
[2017-07-23 07:20] VITALS: BP 118/59
[2017-07-23 07:49] LABS: HEMATOCRIT 38.6 % (36.0-47.0); HEMOGLOBIN 12.8 g/dL (12.0-15.5); RED BLOOD COUNT 4.31 x10^6/uL (3.50-5.40); WHITE BLOOD COUNT 12.5 x10^3/uL (4.0-11.0)
[2017-07-23 07:56] LABS: ALBUMIN 3.5 g/dL (3.4-5.0); ALBUMIN/GLOBULIN RATIO 0.9 (1.0-1.7); CALCIUM 9.5 mg/dL (8.5-10.1); CREATININE 0.9 mg/dL (0.6-1.0); GFR 65.5; POTASSIUM 4.6 mmol/L (3.5-5.1); TOTAL BILIRUBIN 0.8 mg/dL (0.2-1.0); TOTAL PROTEIN 7.6 g/dL (6.4-8.2)
[2017-07-23] MEDS: MAGNESIUM OXIDE 400 MG TABLET PO SCH (09:19)
[2017-07-23] MEDS: ASPIRIN ENTERIC COATED 81 MG TABLET.DR. PO SCH (09:19)
[2017-07-23] MEDS: LISINOPRIL 20 MG TABLET PO SCH (09:20)
[2017-07-23] MEDS: CARVEDILOL 12.5 MG TABLET. PO SCH ×2 (09:20→18:33)
[2017-07-23] MEDS: BUDESONIDE 0.5 MG/2 ML NEBU. NEB SCH ×2 (09:34→20:18)
--- NOTE | 2017-07-23 09:34 | PDOC ---
SUBJECTIVE Subjective feels better, CT chest negative OBJECTIVE Vital Signs Vital Signs Date Time Temp Pulse Resp B/P (MAP) Pulse Ox O2 Delivery O2 Flow Rate FiO2 07/23/17 09:20 72 118/59 07/23/17 09:20 72 118/59 07/23/17 07:20 98.2 49 18 118/59 (78) 94 Room Air 98.2 07/23/17 02:19 98.0 62 18 102/55 (71) 96 Room Air 98.0 07/22/17 22:10 98.3 70 20 96/59 (71) 97 Room Air 98.3 07/22/17 20:00 Room Air 07/22/17 19:59 Room Air 07/22/17 19:41 98.3 77 20 116/65 (82) 98 Room Air 98.3 07/22/17 17:07 68 109/76 07/22/17 15:00 98.1 67 20 109/76 (87) 98 98.1 07/22/17 11:02 74 07/22/17 11:00 98.6 73 18 114/82 (93) 97 98.6 07/22/17 10:56 73 114/82 PHYSICAL EXAM Physical Exam lungs fairly clear heart RRR abd soft ext no edema ASSESSMENT/PLAN Assessment/Plan 1- chest pain and SOB MPI without ischemia possible acute hypersensitivity pneumonitis vs mild exacerbation of CHF 2-HTN 3-obesity consider SAWYER 4-acute on chronic systolic CHF 4-DM II 5-CKD II plan increase activity today , home when ok with pulmonary and c.v Problems: COMMENT Lab Laboratory Tests Test 07/22/17 11:55 07/22/17 14:50 07/22/17 16:57 07/22/17 20:59 Glucose (Fingerstick) 167 mg/dL (70-99) 108 mg/dL (70-99) 151 mg/dL (70-99) Erythrocyte Sedimentation Rate 30 (0-25) D-Dimer (Jessie) 1.73 ug/mlFEU (0.00-0.50) Sodium Level 139 mmol/L (136-145) Potassium Level 4.3 mmol/L (3.5-5.1) Chloride Level 102 mmol/L (98-107) Carbon Dioxide Level 28 mmol/L (21-32) Anion Gap 9 (6-14) Blood Urea Nitrogen 28 mg/dL (7-20) Creatinine 0.9 mg/dL (0.6-1.0) Estimated GFR (Cockcroft-Gault) 65.5 Glucose Level 148 mg/dL (70-99) Calcium Level 9.5 mg/dL (8.5-10.1) Magnesium Level 1.7 mg/dL (1.8-2.4) Test 07/23/17 07:06 07/23/17 07:27 White Blood Count 12.5 x10^3/uL (4.0-11.0) Red Blood Count 4.31 x10^6/uL (3.50-5.40) Hemoglobin 12.8 g/dL (12.0-15.5) Hematocrit 38.6 % (36.0-47.0) Mean Corpuscular Volume 90 fL (79-100) Mean Corpuscular Hemoglobin 30 pg (25-35) Mean Corpuscular Hemoglobin Concent 33 g/dL (31-37) Red Cell Distribution Width 13.0 % (11.5-14.5) Platelet Count 341 x10^3/uL (140-400) Sodium Level 138 mmol/L (136-145) Potassium Level 4.6 mmol/L (3.5-5.1) Chloride Level 103 mmol/L (98-107) Carbon Dioxide Level 22 mmol/L (21-32) Anion Gap 13 (6-14) Blood Urea Nitrogen 25 mg/dL (7-20) Creatinine 0.9 mg/dL (0.6-1.0) Estimated GFR (Cockcroft-Gault) 65.5 BUN/Creatinine Ratio 28 (6-20) Glucose Level 151 mg/dL (70-99) Calcium Level 9.5 mg/dL (8.5-10.1) Total Bilirubin 0.8 mg/dL (0.2-1.0) Aspartate Amino Transf (AST/SGOT) 21 U/L (15-37) Alanine Aminotransferase (ALT/SGPT) 33 U/L (14-59) Alkaline Phosphatase 79 U/L (46-116) Total Protein 7.6 g/dL (6.4-8.2) Albumin 3.5 g/dL (3.4-5.0) Albumin/Globulin Ratio 0.9 (1.0-1.7) Glucose (Fingerstick) 145 mg/dL (70-99) YRN SERRANO MD Jul 23, 2017 09:34
[2017-07-23 11:15] VITALS: BP 95/59
--- NOTE | 2017-07-23 12:10 | PDOC ---
PULMONARY PROGRESS NOTES Subjective feels better Vitals Vital Signs Date Time Temp Pulse Resp B/P (MAP) Pulse Ox O2 Delivery O2 Flow Rate FiO2 07/23/17 11:15 98.3 66 18 95/59 (71) 95 Room Air 98.3 General: Alert, No acute distress Lungs: Clear Cardiovascular: S1 Abdomen: Soft Neuro Exam: Alert Extremities: No Edema Skin: Warm Labs Laboratory Tests Test 07/21/17 12:20 07/21/17 14:43 07/21/17 17:40 07/21/17 17:43 White Blood Count 14.6 x10^3/uL (4.0-11.0) Red Blood Count 4.33 x10^6/uL (3.50-5.40) Hemoglobin 13.0 g/dL (12.0-15.5) Hematocrit 39.1 % (36.0-47.0) Mean Corpuscular Volume 90 fL (79-100) Mean Corpuscular Hemoglobin 30 pg (25-35) Mean Corpuscular Hemoglobin Concent 33 g/dL (31-37) Red Cell Distribution Width 13.0 % (11.5-14.5) Platelet Count 333 x10^3/uL (140-400) Neutrophils (%) (Auto) 71 % (31-73) Lymphocytes (%) (Auto) 20 % (24-48) Monocytes (%) (Auto) 7 % (0-9) Eosinophils (%) (Auto) 2 % (0-3) Basophils (%) (Auto) 1 % (0-3) Neutrophils # (Auto) 10.3 x10^3uL (1.8-7.7) Lymphocytes # (Auto) 3.0 x10^3/uL (1.0-4.8) Monocytes # (Auto) 1.0 x10^3/uL (0.0-1.1) Eosinophils # (Auto) 0.2 x10^3/uL (0.0-0.7) Basophils # (Auto) 0.1 x10^3/uL (0.0-0.2) Sodium Level 139 mmol/L (136-145) Potassium Level 4.3 mmol/L (3.5-5.1) Chloride Level 104 mmol/L (98-107) Carbon Dioxide Level 21 mmol/L (21-32) Anion Gap 14 (6-14) Blood Urea Nitrogen 19 mg/dL (7-20) Creatinine 0.8 mg/dL (0.6-1.0) Estimated GFR (Cockcroft-Gault) 75.0 Glucose Level 162 mg/dL (70-99) Hemoglobin A1c 6.2 % (4.8-5.6) Calcium Level 9.7 mg/dL (8.5-10.1) Magnesium Level 1.3 mg/dL (1.8-2.4) Total Bilirubin 1.0 mg/dL (0.2-1.0) Direct Bilirubin 0.1 mg/dL (0.0-0.2) Aspartate Amino Transf (AST/SGOT) 14 U/L (15-37) Alanine Aminotransferase (ALT/SGPT) 37 U/L (14-59) Alkaline Phosphatase 74 U/L (46-116) Troponin I Quantitative < 0.017 ng/mL (0.000-0.055) < 0.017 ng/mL (0.000-0.055) < 0.017 ng/mL (0.000-0.055) VC-Jfo-K-Type Natriuretic Peptide 102 pg/mL (0-124) Total Protein 7.6 g/dL (6.4-8.2) Albumin 3.6 g/dL (3.4-5.0) Thyroid Stimulating Hormone (TSH) 5.622 uIU/mL (0.358-3.74) Glucose (Fingerstick) 96 mg/dL (70-99) Test 07/21/17 20:41 07/22/17 03:00 07/22/17 08:03 07/22/17 11:55 Glucose (Fingerstick) 146 mg/dL (70-99) 147 mg/dL (70-99) 167 mg/dL (70-99) White Blood Count 13.6 x10^3/uL (4.0-11.0) Red Blood Count 4.35 x10^6/uL (3.50-5.40) Hemoglobin 12.9 g/dL (12.0-15.5) Hematocrit 39.0 % (36.0-47.0) Mean Corpuscular Volume 90 fL (79-100) Mean Corpuscular Hemoglobin 30 pg (25-35) Mean Corpuscular Hemoglobin Concent 33 g/dL (31-37) Red Cell Distribution Width 13.1 % (11.5-14.5) Platelet Count 355 x10^3/uL (140-400) Neutrophils (%) (Auto) 65 % (31-73) Lymphocytes (%) (Auto) 24 % (24-48) Monocytes (%) (Auto) 10 % (0-9) Eosinophils (%) (Auto) 2 % (0-3) Basophils (%) (Auto) 0 % (0-3) Neutrophils # (Auto) 8.8 x10^3uL (1.8-7.7) Lymphocytes # (Auto) 3.3 x10^3/uL (1.0-4.8) Monocytes # (Auto) 1.3 x10^3/uL (0.0-1.1) Eosinophils # (Auto) 0.2 x10^3/uL (0.0-0.7) Basophils # (Auto) 0.0 x10^3/uL (0.0-0.2) Sodium Level 139 mmol/L (136-145) Potassium Level 4.9 mmol/L (3.5-5.1) Chloride Level 101 mmol/L (98-107) Carbon Dioxide Level 27 mmol/L (21-32) Anion Gap 11 (6-14) Blood Urea Nitrogen 28 mg/dL (7-20) Creatinine 1.3 mg/dL (0.6-1.0) Estimated GFR (Cockcroft-Gault) 42.8 Glucose Level 118 mg/dL (70-99) Calcium Level 9.9 mg/dL (8.5-10.1) Troponin I Quantitative < 0.017 ng/mL (0.000-0.055) Triglycerides Level 280 mg/dL (0-150) Cholesterol Level 145 mg/dL (0-200) LDL Cholesterol, Calculated 53 mg/dL (0-100) VLDL Cholesterol, Calculated 56 mg/dL (0-40) Non-HDL Cholesterol Calculated 109 mg/dL (0-129) HDL Cholesterol 36 mg/dL (40-60) Cholesterol/HDL Ratio 4.0 Test 07/22/17 14:50 07/22/17 16:57 07/22/17 20:59 07/23/17 07:06 Erythrocyte Sedimentation Rate 30 (0-25) D-Dimer (Jessie) 1.73 ug/mlFEU (0.00-0.50) Sodium Level 139 mmol/L (136-145) 138 mmol/L (136-145) Potassium Level 4.3 mmol/L (3.5-5.1) 4.6 mmol/L (3.5-5.1) Chloride Level 102 mmol/L (98-107) 103 mmol/L (98-107) Carbon Dioxide Level 28 mmol/L (21-32) 22 mmol/L (21-32) Anion Gap 9 (6-14) 13 (6-14) Blood Urea Nitrogen 28 mg/dL (7-20) 25 mg/dL (7-20) Creatinine 0.9 mg/dL (0.6-1.0) 0.9 mg/dL (0.6-1.0) Estimated GFR (Cockcroft-Gault) 65.5 65.5 Glucose Level 148 mg/dL (70-99) 151 mg/dL (70-99) Calcium Level 9.5 mg/dL (8.5-10.1) 9.5 mg/dL (8.5-10.1) Magnesium Level 1.7 mg/dL (1.8-2.4) Glucose (Fingerstick) 108 mg/dL (70-99) 151 mg/dL (70-99) White Blood Count 12.5 x10^3/uL (4.0-11.0) Red Blood Count 4.31 x10^6/uL (3.50-5.40) Hemoglobin 12.8 g/dL (12.0-15.5) Hematocrit 38.6 % (36.0-47.0) Mean Corpuscular Volume 90 fL (79-100) Mean Corpuscular Hemoglobin 30 pg (25-35) Mean Corpuscular Hemoglobin Concent 33 g/dL (31-37) Red Cell Distribution Width 13.0 % (11.5-14.5) Platelet Count 341 x10^3/uL (140-400) BUN/Creatinine Ratio 28 (6-20) Total Bilirubin 0.8 mg/dL (0.2-1.0) Aspartate Amino Transf (AST/SGOT) 21 U/L (15-37) Alanine Aminotransferase (ALT/SGPT) 33 U/L (14-59) Alkaline Phosphatase 79 U/L (46-116) Total Protein 7.6 g/dL (6.4-8.2) Albumin 3.5 g/dL (3.4-5.0) Albumin/Globulin Ratio 0.9 (1.0-1.7) Test 07/23/17 07:27 07/23/17 11:20 Glucose (Fingerstick) 145 mg/dL (70-99) 175 mg/dL (70-99) Laboratory Tests Test 07/22/17 14:50 07/22/17 16:57 07/22/17 20:59 07/23/17 07:06 Erythrocyte Sedimentation Rate 30 (0-25) D-Dimer (Jessie) 1.73 ug/mlFEU (0.00-0.50) Sodium Level 139 mmol/L (136-145) 138 mmol/L (136-145) Potassium Level 4.3 mmol/L (3.5-5.1) 4.6 mmol/L (3.5-5.1) Chloride Level 102 mmol/L (98-107) 103 mmol/L (98-107) Carbon Dioxide Level 28 mmol/L (21-32) 22 mmol/L (21-32) Anion Gap 9 (6-14) 13 (6-14) Blood Urea Nitrogen 28 mg/dL (7-20) 25 mg/dL (7-20) Creatinine 0.9 mg/dL (0.6-1.0) 0.9 mg/dL (0.6-1.0) Estimated GFR (Cockcroft-Gault) 65.5 65.5 Glucose Level 148 mg/dL (70-99) 151 mg/dL (70-99) Calcium Level 9.5 mg/dL (8.5-10.1) 9.5 mg/dL (8.5-10.1) Magnesium Level 1.7 mg/dL (1.8-2.4) Glucose (Fingerstick) 108 mg/dL (70-99) 151 mg/dL (70-99) White Blood Count 12.5 x10^3/uL (4.0-11.0) Red Blood Count 4.31 x10^6/uL (3.50-5.40) Hemoglobin 12.8 g/dL (12.0-15.5) Hematocrit 38.6 % (36.0-47.0) Mean Corpuscular Volume 90 fL (79-100) Mean Corpuscular Hemoglobin 30 pg (25-35) Mean Corpuscular Hemoglobin Concent 33 g/dL (31-37) Red Cell Distribution Width 13.0 % (11.5-14.5) Platelet Count 341 x10^3/uL (140-400) BUN/Creatinine Ratio 28 (6-20) Total Bilirubin 0.8 mg/dL (0.2-1.0) Aspartate Amino Transf (AST/SGOT) 21 U/L (15-37) Alanine Aminotransferase (ALT/SGPT) 33 U/L (14-59) Alkaline Phosphatase 79 U/L (46-116) Total Protein 7.6 g/dL (6.4-8.2) Albumin 3.5 g/dL (3.4-5.0) Albumin/Globulin Ratio 0.9 (1.0-1.7) Test 07/23/17 07:27 07/23/17 11:20 Glucose (Fingerstick) 145 mg/dL (70-99) 175 mg/dL (70-99) Medications Active Scripts Medications Dose Route/Sig Max Daily Dose Days Date Category Carvedilol 12.5 Mg Tablet 12.5 Mg PO BIDWMEALS 07/22/17 Reported Atorvastatin Calcium 80 Mg Tablet 1 Tab PO DAILY 06/13/15 Reported Aspirin 81 Mg Tab.chew 1 Tab PO DAILY 06/13/15 Reported Vitamin D (Cholecalciferol (Vitamin D3)) 2,000 Unit Capsule 1 Cap PO DAILY 06/13/15 Reported Metformin Hcl 1,000 Mg Tablet 1 Tab PO BID 06/13/15 Reported Lisinopril 20 Mg Tablet 1 Tab PO DAILY 06/13/15 Reported Impression . 1. Dyspnea with chest discomfort. This has been going on for last 2 weeks. Her history is also pertinent for exposure to chicken poop for the last 2 months. Her co-worker has a nonresolving cough. Her chest x-ray is clear. It is certainly possible that she may have mild acute hypersensitivity pneumonitis related to exposure to chicken poop. The patient has nonischemic cardiomyopathy, but the chest x-ray does not reveal any evidence of congestive heart failure. 2. No significant history of tobacco use. 3. Chest pain. Cardiology is following, it could be pleuritic from hypersensitivity pneumonitis. Clinically, less likely thromboembolic disease, 4. Abnormal D-dimer. Plan . 1. high resolution CT chest with no disease 2. nebulizers. 3. abnrmal D-dimer. will do VQ scan 4. suspect she may have reactive airway disease triggered by chicken poop exposure, improved with nebs AMARA MORTON MD Jul 23, 2017 12:10
[2017-07-23] MEDS: IPRATRPIUM/ALBUTEROL 0.5/2.5MG 3 ML NEBU. NEB SCH ×3 (12:37→20:18)
[2017-07-23 15:20] VITALS: BP 88/64
[2017-07-23 19:18] VITALS: BP 105/58
[2017-07-23] MEDS: ATORVASTATIN CALCIUM 40 MG TABLET. PO SCH (20:37)
[2017-07-23 23:42] VITALS: BP 100/57
[2017-07-24 03:24] VITALS: BP 97/59
[2017-07-24 07:00] VITALS: BP 116/49
[2017-07-24] MEDS: IPRATRPIUM/ALBUTEROL 0.5/2.5MG 3 ML NEBU. NEB SCH ×3 (08:00→15:36)
[2017-07-24] MEDS ORDERED: MAGNESIUM OXIDE 400 MG TABLET ONE (08:00)
[2017-07-24] MEDS ORDERED: IPRATRPIUM/ALBUTEROL 0.5/2.5MG 3 ML NEBU. ONE (08:05)
[2017-07-24] MEDS: CARVEDILOL 12.5 MG TABLET. PO SCH (09:13)
[2017-07-24] MEDS: LISINOPRIL 20 MG TABLET PO SCH (09:13)
[2017-07-24] MEDS: ASPIRIN ENTERIC COATED 81 MG TABLET.DR. PO SCH (09:13)
[2017-07-24] MEDS: MAGNESIUM OXIDE 400 MG TABLET PO SCH (09:14)
[2017-07-24] MEDS ORDERED: BUDE0.5A NEB (09:40)
[2017-07-24] MEDS ORDERED: IPRA3AMP NEB (09:40)
--- NOTE | 2017-07-24 09:41 | PDOC ---
SUBJECTIVE Subjective feels better OBJECTIVE Vital Signs Vital Signs Date Time Temp Pulse Resp B/P (MAP) Pulse Ox O2 Delivery O2 Flow Rate FiO2 07/24/17 09:13 65 102/63 07/24/17 09:13 65 102/63 07/24/17 07:00 97.5 64 19 116/49 (71) 96 Room Air 97.5 07/24/17 03:24 97.6 65 16 97/59 (72) 92 Room Air 97.6 07/23/17 23:42 97.4 67 16 100/57 (71) 92 Room Air 97.4 07/23/17 20:20 97 Room Air 07/23/17 20:18 97 Room Air 07/23/17 20:00 Room Air 07/23/17 19:18 98.4 68 18 105/58 (74) 97 Room Air 98.4 07/23/17 18:33 69 104/59 07/23/17 16:15 98 Room Air 07/23/17 15:20 98.0 69 18 88/64 (72) 96 Room Air 98.0 07/23/17 12:39 Room Air 07/23/17 11:15 98.3 66 18 95/59 (71) 95 Room Air 98.3 I & O Intake and Output 07/25/17 07:00 Intake Total 250 ml Balance 250 ml Intake Oral 250 ml PHYSICAL EXAM Physical Exam no change, lungs clear ASSESSMENT/PLAN Assessment/Plan 1- chest pain and SOB MPI without ischemia possible acute hypersensitivity pneumonitis vs mild exacerbation of CHF agree with V/Q scan since her D-Dimer was high 2-HTN 3-obesity consider SAWYER 4-acute on chronic systolic CHF 4-DM II 5-CKD II home if V/Q scan neg, discussed with Dr. Shi Problems: COMMENT Lab Laboratory Tests Test 07/23/17 11:20 07/23/17 16:46 07/23/17 21:06 07/24/17 08:32 Glucose (Fingerstick) 175 mg/dL (70-99) 99 mg/dL (70-99) 174 mg/dL (70-99) 143 mg/dL (70-99) YRN SERRANO MD Jul 24, 2017 09:41
--- NOTE | 2017-07-24 10:06 | RAD ---
Ventilation/perfusion lung scan, 07/24/2017: History: Chest pain The ventilation study was performed utilizing 16.5 mCi xenon-133. The lung activity is symmetric. There is good washout of xenon from the lungs. Perfusion imaging was performed utilizing 6.0 mCi of technetium 99m MAA. A similar pattern of activity is present in the lungs. No significant unmatched or segmental perfusion defects are seen. IMPRESSION: There are no VQ findings to suggest pulmonary emboli.
[2017-07-24 11:00] VITALS: BP_SYST 104; BP_SYST 106; BP_DIAS 30; BP_DIAS 45
[2017-07-24] MEDS: BUDESONIDE 0.5 MG/2 ML NEBU. NEB SCH (11:56)
--- NOTE | 2017-07-24 12:26 | PDOC ---
PULMONARY PROGRESS NOTES Subjective feels better Vitals Vital Signs Date Time Temp Pulse Resp B/P (MAP) Pulse Ox O2 Delivery O2 Flow Rate FiO2 07/24/17 11:56 96 Room Air 07/24/17 11:00 97.9 64 19 106/30 (55) 97.9 General: Alert, No acute distress Lungs: Clear Cardiovascular: S1 Abdomen: Soft Neuro Exam: Alert Extremities: No Edema Skin: Warm Labs Laboratory Tests Test 07/22/17 14:50 07/22/17 16:57 07/22/17 20:59 07/23/17 07:06 Erythrocyte Sedimentation Rate 30 (0-25) D-Dimer (Jessie) 1.73 ug/mlFEU (0.00-0.50) Sodium Level 139 mmol/L (136-145) 138 mmol/L (136-145) Potassium Level 4.3 mmol/L (3.5-5.1) 4.6 mmol/L (3.5-5.1) Chloride Level 102 mmol/L (98-107) 103 mmol/L (98-107) Carbon Dioxide Level 28 mmol/L (21-32) 22 mmol/L (21-32) Anion Gap 9 (6-14) 13 (6-14) Blood Urea Nitrogen 28 mg/dL (7-20) 25 mg/dL (7-20) Creatinine 0.9 mg/dL (0.6-1.0) 0.9 mg/dL (0.6-1.0) Estimated GFR (Cockcroft-Gault) 65.5 65.5 Glucose Level 148 mg/dL (70-99) 151 mg/dL (70-99) Calcium Level 9.5 mg/dL (8.5-10.1) 9.5 mg/dL (8.5-10.1) Magnesium Level 1.7 mg/dL (1.8-2.4) Glucose (Fingerstick) 108 mg/dL (70-99) 151 mg/dL (70-99) White Blood Count 12.5 x10^3/uL (4.0-11.0) Red Blood Count 4.31 x10^6/uL (3.50-5.40) Hemoglobin 12.8 g/dL (12.0-15.5) Hematocrit 38.6 % (36.0-47.0) Mean Corpuscular Volume 90 fL (79-100) Mean Corpuscular Hemoglobin 30 pg (25-35) Mean Corpuscular Hemoglobin Concent 33 g/dL (31-37) Red Cell Distribution Width 13.0 % (11.5-14.5) Platelet Count 341 x10^3/uL (140-400) BUN/Creatinine Ratio 28 (6-20) Total Bilirubin 0.8 mg/dL (0.2-1.0) Aspartate Amino Transf (AST/SGOT) 21 U/L (15-37) Alanine Aminotransferase (ALT/SGPT) 33 U/L (14-59) Alkaline Phosphatase 79 U/L (46-116) Total Protein 7.6 g/dL (6.4-8.2) Albumin 3.5 g/dL (3.4-5.0) Albumin/Globulin Ratio 0.9 (1.0-1.7) Test 07/23/17 07:27 07/23/17 11:20 07/23/17 16:46 07/23/17 21:06 Glucose (Fingerstick) 145 mg/dL (70-99) 175 mg/dL (70-99) 99 mg/dL (70-99) 174 mg/dL (70-99) Test 07/24/17 08:32 07/24/17 10:39 Glucose (Fingerstick) 143 mg/dL (70-99) 219 mg/dL (70-99) Laboratory Tests Test 07/23/17 16:46 07/23/17 21:06 07/24/17 08:32 07/24/17 10:39 Glucose (Fingerstick) 99 mg/dL (70-99) 174 mg/dL (70-99) 143 mg/dL (70-99) 219 mg/dL (70-99) Medications Active Scripts Medications Dose Route/Sig Max Daily Dose Days Date Category Carvedilol 12.5 Mg Tablet 12.5 Mg PO BIDWMEALS 07/22/17 Reported Atorvastatin Calcium 80 Mg Tablet 1 Tab PO DAILY 06/13/15 Reported Aspirin 81 Mg Tab.chew 1 Tab PO DAILY 06/13/15 Reported Vitamin D (Cholecalciferol (Vitamin D3)) 2,000 Unit Capsule 1 Cap PO DAILY 06/13/15 Reported Metformin Hcl 1,000 Mg Tablet 1 Tab PO BID 7/29/15 Reported Lisinopril 20 Mg Tablet 1 Tab PO DAILY 06/13/15 Reported Impression . 1. Dyspnea with chest discomfort. This has been going on for last 2 weeks. Her history is also pertinent for exposure to chicken poop for the last 2 months. Her co-worker has a nonresolving cough. Her chest x-ray is clear. It is certainly possible that she may have mild acute hypersensitivity pneumonitis related to exposure to chicken poop. The patient has nonischemic cardiomyopathy, but the chest x-ray does not reveal any evidence of congestive heart failure. 2. No significant history of tobacco use. 3. Chest pain. Cardiology is following, it could be pleuritic from hypersensitivity pneumonitis. Clinically, less likely thromboembolic disease, 4. Abnormal D-dimer. Plan . 1. high resolution CT chest with no disease 2. nebulizers. 3. abnrmal D-dimer. Neg VQ scan 4. suspect she may have reactive airway disease triggered by chicken poop exposure, improved with nebs ok with dc home today AMARA MORTON MD Jul 24, 2017 12:26
== END 2017-07-24 16:53 | disposition home or self-care (01) | DRG 196 ==
LOC: ER 11:28 → 2 SOUTH 14:32 → OBSVTOIN 14:36
PROVIDERS: ADMIT Internal Medicine; ATTEND Internal Medicine
DX: J67.9 Hypersensitivity pneumonitis due to unspecified organic dust (principal); I50.23 Acute on chronic systolic (congestive) heart failure; N17.9 Acute kidney failure, unspecified; I42.9 Cardiomyopathy, unspecified; E11.22 Type 2 diabetes mellitus with diabetic chronic kidney disease; I48.92 Unspecified atrial flutter; I13.0 Hypertensive heart and chronic kidney disease with heart failure and stage 1 through stage 4 chronic kidney disease, or unspecified chronic kidney disease; E03.9 Hypothyroidism, unspecified; E66.9 Obesity, unspecified; E78.00 Pure hypercholesterolemia, unspecified; E78.5 Hyperlipidemia, unspecified; G47.33 Obstructive sleep apnea (adult) (pediatric); H54.0 Blindness, both eyes; I48.0 Paroxysmal atrial fibrillation; N18.2 Chronic kidney disease, stage 2 (mild); R79.1 Abnormal coagulation profile; Z82.49 Family history of ischemic heart disease and other diseases of the circulatory system; Z95.0 Presence of cardiac pacemaker; J30.9 Allergic rhinitis, unspecified; M19.90 Unspecified osteoarthritis, unspecified site; R06.83 Snoring
CPT/HCPCS: 36415; 51701; 71010; 71250; 78452; 78582; 80048; 80053; 80061; 80076; 82962; 83036; 83735; 83880; 84443; 84484; 85025; 85027; 85379; 85651; 93005; 93017; 94250; 94620; 94640; 94760; 96374; 96375; 96376; A9500; A9540; A9558; G0379; J1940; J2785; J3475; J7060; J7620; J7626; 99285-25

== ENCOUNTER → 2018-10-28 | Outpatient (CLI) | payer OTHER ==
[2017-07-24 11:00] VITALS: BP 104/45
[~2018-10-28] MED LIST changes: +BUDE0.5A NEB; +CARV12.511 PO; +IPRA3AMP29 NEB; -METF-620 PO; +METF10007 PO
--- NOTE | 2018-10-28 18:12 | CARD ---
MR#: [id number] Date of Study: 10/28/2018 Ordering Physician: MONICA BUSCH, Referring Physician: MONICA BUSCH Tech: Dasha Limon RDCS APPROVED REPORT EXAM: Two-dimensional and M-mode echocardiogram with Doppler and color Doppler. Other Information Quality : Good INDICATION Arrhythmia Surgery/Intervention Pacemaker: 2D DIMENSIONS RVDd2.5 (2.9-3.5cm)Left Atrium(2D)3.3 (1.6-4.0cm) IVSd0.8 (0.7-1.1cm)Aortic Root(2D)2.4 (2.0-3.7cm) LVDd4.3 (3.9-5.9cm)LVOT Diameter2.2 (1.8-2.4cm) PWd0.9 (0.7-1.1cm)LVDs3.4 (2.5-4.0cm) FS (%) 22.4 %SV38.5 ml Aortic Valve AoV Peak Gamaliel.180.8cm/sAoV VTI35.7cm AO Peak GR.13.1mmHgLVOT Peak Gamaliel.125.6cm/s AO Mean GR.7mmHgAVA (VMAX)2.57cm2 JOLEEN (VTI)2.60cm2 Mitral Valve MV E Uqcjlina51.6cm/sMV DECEL PUBJ092ds MV A Ciimegal43.8cm/sE/A Ratio0.7 Tricuspid Valve TR P. Uphqrjac573cb/sRAP OFZRPSEK9pmBy TR Peak Gr.91qbElEIPV62bnYf Pulmonary Vein S1 Uxcoewir57.9cm/sD2 Fnkhlzvz68.7cm/s LEFT VENTRICLE The left ventricle is normal size. There is normal left ventricular wall thickness. The left ventricu lar systolic function is normal and the ejection fraction is within normal range. LV ejection fractio n is 50-55%. There is normal LV segmental wall motion. Transmitral Doppler flow pattern is Grade I-ab normal relaxation pattern. RIGHT VENTRICLE The right ventricle is normal size. The right ventricular systolic function is normal. There is a pac emaker lead in the right ventricle. ATRIA The left atrium size is normal. The right atrium size is normal. A pacemaker is seen in the right atr ium consistent with history. The interatrial septum is intact with no evidence for an atrial septal d efect or patent foramen ovale as noted on 2-D or Doppler imaging. AORTIC VALVE The aortic valve is normal in structure and function. Doppler and Color Flow revealed no significant aortic regurgitation. There is no significant aortic valvular stenosis. MITRAL VALVE The mitral valve is normal in structure and function. There is no evidence of mitral valve prolapse. There is no mitral valve stenosis. Doppler and Color-flow revealed trace mitral regurgitation. TRICUSPID VALVE The tricuspid valve is normal in structure and function. Doppler and Color Flow revealed mild tricusp id regurgitation. The PA pressure was estimated at 42 mmHg. There is no tricuspid valve stenosis. PULMONIC VALVE The pulmonic valve is not well visualized. Doppler and Color Flow revealed no pulmonic valvular regur gitation. There is no pulmonic valvular stenosis. GREAT VESSELS The aortic root is normal in size. The ascending aorta is not well seen. The IVC is dilated and colla pses >50% with inspiration. PERICARDIAL EFFUSION There is no evidence of significant pericardial effusion. Critical Notification Critical Value: No <Conclusion> The left ventricle is normal size. The left ventricular systolic function is normal and the ejection fraction is within normal range. LV ejection fraction is 50-55%. There is a pacemaker lead in the right ventricle. The right atrium size is normal. A pacemaker is seen in the right atrium consistent with history. There is no significant aortic valvular stenosis. Doppler and Color Flow revealed no significant aortic regurgitation. Doppler and Color-flow revealed trace mitral regurgitation. Doppler and Color Flow revealed mild tricuspid regurgitation. The PA pressure was estimated at 42 mmHg. Signed by : Chang Montana MD Electronically Approved : 10/28/2018 18:10:51
== END | disposition home or self-care (01) ==
LOC: ECHO 13:52
PROVIDERS: ATTEND Internal Medicine Cardiovascular Disease
DX: I07.1 Rheumatic tricuspid insufficiency (principal); I49.8 Other specified cardiac arrhythmias; Z95.0 Presence of cardiac pacemaker
CPT/HCPCS: 93306

== ENCOUNTER → 2020-04-06 | Outpatient (CLI) | payer OTHER ==
[2017-07-24 11:00] VITALS: BP 104/45
--- NOTE | 2020-04-06 12:07 | CARD ---
MR#: [id number] Date of Study: 04/06/2020 Ordering Physician: MONICA BUSCH, Referring Physician: MONICA BUSCH, Tech: Elizabeth Sierra APPROVED REPORT EXAM: Two-dimensional and M-mode echocardiogram with Doppler and color Doppler. Other Information Quality : AverageHR: 67bpm INDICATION Congestive Heart Failure Surgery/Intervention Pacemaker: Date: 2004 RISK FACTORS Hypertension Hyperlipidemia Diabetes 2D DIMENSIONS Left Atrium(2D)3.3 (1.6-4.0cm)IVSd0.9 (0.7-1.1cm) Aortic Root(2D)2.8 (2.0-3.7cm)LVDd4.9 (3.9-5.9cm) LVOT Diameter1.9 (1.8-2.4cm)PWd1.1 (0.7-1.1cm) LVDs4.0 (2.5-4.0cm)FS (%) 17.9 % SV42.3 mlLVEF(%)37.0 (>50%) Aortic Valve AoV Peak Gamaliel.156.4cm/sAoV VTI28.4cm AO Peak GR.9.8mmHgLVOT Peak Gamaliel.130.3cm/s LVOT VTI 24.46cmAO Mean GR.5mmHg JOELEN (VMAX)1.16bk6GZI (VTI)2.46cm2 Mitral Valve MV E Hyurdsxi59.2cm/sMV DECEL BGUG856lu MV A Hrfucqaw84.9cm/sMV E Mean Gr.1mmHg MV DYX34wrE/A Ratio0.7 MVA (PHT)2.75cm2 TDI E/Lateral E'7.0E/Medial E'11.0 Pulmonary Valve PV Peak Znvradkl45.6cm/sPV Peak Grad.4mmHg Tricuspid Valve TR P. Mjchdkji804ie/sRAP FSQLRZKJ2lsGo TR Peak Gr.02teDnPHST98vzYd Pulmonary Vein S1 Mmnjxbsg61.5cm/sD2 Ldlpabfi83.8cm/s PVa caaokjkx596fbge LEFT VENTRICLE The left ventricle is normal size. There is normal left ventricular wall thickness. The systolic func tion is moderately impaired. EF 40% There is moderate global hypokinesis. Tissue Doppler imaging reve als moderate left ventricular diastolic dysfunction. RIGHT VENTRICLE The right ventricle is normal size. There is normal right ventricular wall thickness. The right ventr icular systolic function is normal. There is a pacemaker lead in the right ventricle. ATRIA The left atrium size is normal. The right atrium is borderline dilated.pacemaker lead seen in the rig ht atrium. The interatrial septum is intact with no evidence for an atrial septal defect or patent fo ramen ovale as noted on 2-D or Doppler imaging. AORTIC VALVE The aortic valve is normal in structure and function. Doppler and Color Flow revealed no significant aortic regurgitation. There is no significant aortic valvular stenosis. MITRAL VALVE The mitral valve is normal in structure and function. There is no evidence of mitral valve prolapse. There is no mitral valve stenosis. Doppler and Color-flow revealed trace mitral regurgitation. TRICUSPID VALVE The tricuspid valve is normal in structure and function. Doppler and Color Flow revealed trace tricus pid regurgitation with an estimated PAP of 28 mmHg. There is no tricuspid valve stenosis. PULMONIC VALVE The pulmonic valve is not well visualized. Doppler and Color Flow revealed no pulmonic valvular regur gitation. There is no pulmonic valvular stenosis. GREAT VESSELS The aortic root is normal in size. The IVC is normal in size and collapses >50% with inspiration. PERICARDIAL EFFUSION There is no evidence of significant pericardial effusion. Critical Notification Critical Value: No <Conclusion> The systolic function is moderately impaired. EF 40% There is moderate global hypokinesis. There is a pacemaker lead in the right ventricle. Signed by : Raimundo Lopez, Electronically Approved : 04/06/2020 12:06:33
== END | disposition home or self-care (01) ==
LOC: ECHO 10:45
PROVIDERS: ATTEND Internal Medicine Cardiovascular Disease
DX: I11.0 Hypertensive heart disease with heart failure (principal); I50.22 Chronic systolic (congestive) heart failure
CPT/HCPCS: 93306

== ENCOUNTER 2020-09-24 13:40 | Emergency (ER) | payer OTHER ==
[~2020-09-24] VITALS: Ht 162.6 cm; Wt 83.0 kg
[2020-09-24] MEDS ORDERED: ASPIRIN 325 MG TABLET PO ONE (14:00)
[2020-09-24 14:04] VITALS: BP 124/74
--- NOTE | 2020-09-24 14:45 | PHYS DOC ---
Past Medical History Past Medical History: Bronchitis, Diabetes-Type II, High Cholesterol, Hyp ertension Additional Past Medical Histor: non-ischemic cardiomyopathy, URETHRAL STENT Past Surgical History: Pacemaker Additional Past Surgical Histo: left eye retina Smoking Status: Never Smoker Alcohol Use: None Drug Use: None General Adult EDM: Chief Complaint: CHEST PAIN HPI: HPI: Patient is a 54 year old female who presents with dull chest pain and pressure that has been going on for a few weeks and getting worse for the last few days. It does get worse with exertion but is not associated with nausea, vomiting, or sweating. It is located in the sternum. The pain is rated 7/10 at its worst and 2/10 at its best. The pain is also associated with SOB and the pt is not sendy lly short of breath. Pt stated that she used an old albuterol inhaler and it made the pain better. Pt has a pacemaker for nonischemic cardiomyopathy from 15 years ago. Pt is scheduled for a stress test next month. Pt also complains of a headache this morning. Review of Systems: Review of Systems: Constitutional: Denies fever or chills Eyes: Denies redness or eye pain HENT: Denies nasal congestion or sore throat Respiratory: Denies cough or wheezing Cardiovascular: Denies palpitations GI: Denies abdominal pain, nausea, or vomiting : Denies dysuria or hematuria Musculoskeletal: Denies back pain or joint pain Integument: Denies rash or skin lesions Neurologic: Denies headache, focal weakness or sensory changes Complete systems were reviewed and found to be within normal limits, except as documented in this note. Heart Score: HEART Score for Chest Pain: HEART Score for Chest Pain Response (Comments) Value History Moderately Suspicious 1 ECG Nonspecific Repolarizatio 1 Age >45 - < 65 1 Risk Factors >3 Risk Factors or Hx CAD 2 Total 5 Risk Factors: Risk Factors: DM, HTN, obesity. Risk Scores: Score 0 - 3: 2.5% MACE over next 6 weeks - Discharge Home Score 4 - 6: 20.3% MACE over next 6 weeks - Admit for Clinical Observation Score 7 - 10: 72.7% MACE over next 6 weeks - Early Invasive Strategies Current Medications: Current Medications Medications (Trade) Dose Ordered Sig/Margot Start Time Stop Time Status Last Admin Dose Admin Aspirin (Marysol Aspirin) 325 mg 1X ONCE 09/24/20 14:00 09/24/20 14:01 DC Allergies: Allergies: Allergies Coded Allergies Type Severity Reaction Last Updated Verified No Known Medication Allergies Allergy Unknown 09/24/20 Yes hydrocodone Adverse Reaction Intermediate "nausea/vomiting" 06/13/15 Yes Physical Exam: PE: Constitutional: Well developed, well nourished, no acute distress, non-toxic appearance HENT: Normocephalic, atraumatic Eyes: Conjunctiva normal, no discharge Neck: Normal range of motion, no tenderness, supple Lungs & Thorax: No respiratory distress, equal chest rise and fall Abdomen: Soft, no tenderness Skin: Warm, dry, no erythema, no rash Back: No tenderness, no CVA tenderness Extremities: No tenderness, ROM intact, no edema Neurologic: Alert and oriented X 3, normal motor function, normal sensory function, no focal deficits noted Psychologic: Affect normal, judgment normal Cardiac: RRR w/ no murmurs, rubs or gallops Current Patient Data: Vital Signs: Vital Signs Date Time Temp Pulse Resp B/P (MAP) Pulse Ox O2 Delivery O2 Flow Rate FiO2 09/24/20 14:04 99.4 72 18 124/74 (91) 96 Room Air 99.4 EKG: EKG: @13:52 sinus rhythm at 75 bpm, Right axis deviation, q wave in 3 and V3-V6, st depression in 1 and aVL, j point elevation in 3 aVF, compared to prior ecg with no significant change Radiology/Procedures: Radiology/Procedures: [] Course & Med Decision Making: Course & Med Decision Making Pertinent Labs and Imaging studies reviewed. (See chart for details) 54 year old female pt presents with chest pain that has been getting worse over the last few days. Labs were reviewed and posted. Patient left AMA. Christa Disclaimer: [email or web address] Disclaimer: This electronic medical record was generated, in whole or in part, using a voice recognition dictation system. Departure Departure Impression: Primary Impression: Chest pain Qualified Codes: R07.9 - Chest pain, unspecified Disposition: 07 AMA/ELOPED/LWBS Condition: GUARDED Referrals: ARMANDO KIRKLAND APRN (PCP) JUNG BROWNLEE DO Sep 24, 2020 14:45
== END 2020-09-24 14:38 | disposition left against medical advice (07) ==
LOC: ER 13:40
DX: R07.2 Precordial pain (principal); R06.02 Shortness of breath; R51.9 Headache, unspecified; E11.9 Type 2 diabetes mellitus without complications; E78.00 Pure hypercholesterolemia, unspecified; I10 Essential (primary) hypertension; Z95.5 Presence of coronary angioplasty implant and graft; Z95.0 Presence of cardiac pacemaker; Z88.5 Allergy status to narcotic agent
CPT/HCPCS: 99283; 99284

== ENCOUNTER → 2020-12-27 | Outpatient (CLI) | payer OTHER ==
[2020-10-02 15:00] VITALS: BP 110/57
[~2020-12-27] MED LIST changes: +GLIP5TAB10 PO; +ISOS30TA19 PO; +ISOS30TA68 PO; +LEVO50TA5 PO; -LISI-334 PO; +LISI20TA18 PO; +METF500T16 PO
[2020-12-27 08:11] LABS: CALCIUM 9.2 mg/dL (8.5-10.1); CREATININE 1.1 mg/dL (0.6-1.0); GFR 51.2; POTASSIUM 4.5 mmol/L (3.5-5.1)
== END ==
LOC: LAB 07:40
PROVIDERS: ATTEND Internal Medicine Cardiovascular Disease
DX: I50.22 Chronic systolic (congestive) heart failure (principal)
CPT/HCPCS: 36415; 80048

== ENCOUNTER → 2021-01-16 | Outpatient (CLI) | payer OTHER ==
[2020-10-02 15:00] VITALS: BP 110/57
[~2021-01-16] MED LIST changes: +SACU1TAB PO
== END ==
LOC: LAB 10:03
PROVIDERS: ATTEND Internal Medicine Cardiovascular Disease
DX: Z01.812 Encounter for preprocedural laboratory examination (principal); I42.8 Other cardiomyopathies; Z20.822 Contact with and (suspected) exposure to COVID-19
CPT/HCPCS: U0003

== ENCOUNTER 2021-01-18 07:04 | Outpatient (CLI) | payer OTHER ==
[~2021-01-18] VITALS: Ht 162.6 cm; Wt 86.2 kg
[2021-01-18] VITALS (8 sets, daily range): BP systolic 133–160; BP diastolic 61–100
[~2021-01-18 07:04] MED LIST changes: -SACU1TAB PO
[2021-01-18] MEDS ORDERED: BACITRACIN 50,000 UNIT in IV NORMAL SALINE 250ML 250 ML IRR ONE (07:45)
[2021-01-18 07:51] LABS: HEMATOCRIT 36.8 % (36.0-47.0); HEMOGLOBIN 12.5 g/dL (12.0-15.5); RED BLOOD COUNT 4.1 x10^6/uL (3.50-5.40); RED CELL DISTRIBUTION WIDTH 13.1 % (11.5-14.5); WHITE BLOOD COUNT 8.1 x10^3/uL (4.0-11.0)
[2021-01-18] MEDS ORDERED: SACU1TAB PO (07:53)
[2021-01-18 07:58] LABS: CALCIUM 8.7 mg/dL (8.5-10.1); CREATININE 0.9 mg/dL (0.6-1.0); GFR 64.5; POTASSIUM 4.1 mmol/L (3.5-5.1)
[2021-01-18] MEDS ORDERED: fentaNYL PF VIAL 100 MCG/2 ML VIAL ONE (08:02)
[2021-01-18] MEDS ORDERED: MIDAZOLAM HCL/PF 2 MG/2 ML VIAL. ONE (08:02)
[2021-01-18] MEDS ORDERED: fentaNYL PF VIAL 100 MCG/2 ML VIAL IV ONE (08:15)
[2021-01-18] MEDS ORDERED: MIDAZOLAM HCL/PF 2 MG/2 ML VIAL. IV ONE (08:15)
[2021-01-18] MEDS ORDERED: LIDOCAINE 2%/EPI 1:100,000 20 ML VIAL. IJ ONE (08:15)
[2021-01-18 08:18] LABS: PROTHROMBIN TIME PATIENT 12.9 SEC (11.7-14.0)
[2021-01-18] MEDS ORDERED: LIDOCAINE 2%/EPI 1:100,000 20 ML VIAL. ONE (08:22)
--- NOTE | 2021-01-18 08:52 | PDOC ---
MODERATE SEDATION ASSESSMENT RISKS/ALTERNATIVES Risks/Alternatives Risks and alternatives of this type of sedation and procedure discussed with: RISK/ALTERNATIVES: Patient H & P ON CHART H & P H & P on chart and reviewed for co-morbid conditions and appropriate labs. H&P ON CHART: Yes STATUS PREG STATUS ASSESSED: N/A MEDS/ALLERGIES REVIEWED Meds/Allergies Reviewed Medications and Allergies including time and route of recently administered narcotics and sedatives. MEDS/ALLERGIES REVIEWED: Yes ASA RATING ASA RATING: III AIRWAY ASSESSMENT Airway Assessment Airway patency, oral function limitations, presence of caps, crowns, dentures, partials, and ability to extend neck assessed. AIRWAY ASSESSMENT: Yes MALLAMPATI SCORE MALLAMPATI SCORE: II PRE-SEDATION ASSESSMENT PRE-SEDATION ASSESSMENT: Yes MONICA BUSCH MD Jan 18, 2021 08:52
--- NOTE | 2021-01-18 09:58 | CARD ---
MR#: [id number] Date of Study: 01/18/2021 Ordering Physician: MONICA AUGUSTIN, Referring Physician: MOINCA AUGUSTIN, Tech: APPROVED REPORT PROCEDURES Medtronic biventricular pacemaker/[employer]ING [employer] SUPERVISOR-P generator change fl time: 0.1 mins dose: 0.58 gycm2 moderate sedation: 38 mins INDICATIONS Chronic systolic heart failure s/p biventricular pacemaker/[employer]AWING [employer] SUPERVISOR-P presenting with battery depletion PROCEDURE After explaining the risks, benefits, and alternative options, informed consent was obtained from the patient. The patient was brought to the cardiac catheterization lab and the left chest and shoulder were prepp ed and draped in a sterile manner. IV conscious sedation was used throughout procedure with appropriate monitoring and was performed in the presence of a registered nurse who was an independent trained observer other than the physician p erforming the procedure. Specimen(s) Removed: No Estimated Blood loss: 10 cc's. 30 cc of 2% lidocaine was infiltrated into the skin and subcutaneous tissues for local anesthesia. A n incision was made over the previous scar in the left infraclavicular fossa and using blunt dissecti on and cautery, the pocket was opened, the capsule exposed and opened and the previously placed gener ator removed from the pocket. The leads were interrogated, found to be functioning well and very att ached to a Medtronic biventricular pacemaker/DRAWING [employer] SUPERVISOR-P generator model [id number], serial number [id number]. This was placed in the pocket that was subsequently closed in 3 layers. Hemostasis was secured. Th ere were no immediate complications. CONCLUSION Successful Medtronic biventricular pacemaker/[employer] SUPERVISOR-P generator change for battery depletion. Signed by : Monica Augustin, Electronically Approved : 01/18/2021 09:57:41
--- NOTE | 2021-01-18 11:37 | NUR ---
Patient taken to vehicle via wheelchair. All belongings taken w/ patient at time of d/c, including cell phone, valuables. Patient's sister driving home. No bleeding at incision site. VS WNL. PIV removed. Instructions provided on site care, sedation. Patient and sister verbalized understanding.
== END 2021-01-18 11:30 | disposition home or self-care (01) ==
LOC: CCL 07:04
PROVIDERS: ATTEND Internal Medicine Cardiovascular Disease
DX: Z45.010 Encounter for checking and testing of cardiac pacemaker pulse generator [battery] (principal); I42.8 Other cardiomyopathies; I11.0 Hypertensive heart disease with heart failure; I50.9 Heart failure, unspecified; I48.91 Unspecified atrial fibrillation; E78.00 Pure hypercholesterolemia, unspecified; E11.9 Type 2 diabetes mellitus without complications; E03.9 Hypothyroidism, unspecified; Z79.899 Other long term (current) drug therapy; Z98.890 Other specified postprocedural states; Z79.82 Long term (current) use of aspirin; Z79.84 Long term (current) use of oral hypoglycemic drugs; Z82.49 Family history of ischemic heart disease and other diseases of the circulatory system
CPT/HCPCS: 33228; 36415; 80048; 85027; 85610; 99152; 99153; C2621; J0690; J2250; J3010; J3490; J7050; 33213; J7030

== ENCOUNTER → 2021-10-23 | Outpatient (CLI) | payer OTHER ==
[2021-01-18 11:00] VITALS: BP 133/69
[~2021-10-23] MED LIST changes: +SACU1TAB PO
--- NOTE | 2021-10-23 12:16 | CARD ---
MR#: [id number] Date of Study: 10/23/2021 Ordering Physician: MONICA BUSCH, Referring Physician: MONICA BUSCH, Tech: Elizabeth Sierra [facility] APPROVED REPORT EXAM: Two-dimensional and M-mode echocardiogram with Doppler and color Doppler. Other Information Quality : AverageHR: 77bpm Technically limited study due to body habitus. INDICATION Congestive Heart Failure Surgery/Intervention Pacemaker: Date: 2013 RISK FACTORS Hypertension Hyperlipidemia Diabetes 2D DIMENSIONS Left Atrium(2D)2.8 (1.6-4.0cm)IVSd0.7 (0.7-1.1cm) Aortic Root(2D)3.0 (2.0-3.7cm)LVDd5.5 (3.9-5.9cm) LVOT Diameter2.0 (1.8-2.4cm)PWd1.1 (0.7-1.1cm) LVDs3.6 (2.5-4.0cm)FS (%) 35.0 % SV94.3 mlLVEF(%)63.6 (>50%) Aortic Valve AoV Peak Gamaliel.166.8cm/sAoV VTI36.9cm AO Peak GR.11.1mmHgLVOT Peak Gamaliel.96.6cm/s LVOT VTI 19.85cmAO Mean GR.6mmHg JOLEEN (VMAX)1.13yg5DCK (VTI)1.65cm2 Mitral Valve MV E Yssbdkfb31.1cm/sMV DECEL GUQP705ei MV A Fwbqbrvw374.6cm/sMV E Mean Gr.2mmHg MV JZD13gwC/A Ratio0.6 MVA (PHT)3.20cm2 TDI E/Lateral E'14.8E/Medial E'11.9 Pulmonary Valve PV Peak Suarfexi19.2cm/sPV Peak Grad.3mmHg Tricuspid Valve TR P. Thbsecgs513vm/sRAP LLHHXJPE3xcQh TR Peak Gr.08blWxKLVS85vhFf Pulmonary Vein S1 Nfxuiflz36.6cm/sD2 Srolsiva40.6cm/s PVa njslmeve446aogv LEFT VENTRICLE The left ventricle is normal size. There is normal left ventricular wall thickness. The systolic func tion is severely impaired. The Ejection Fraction is 30-35%. There is global hypokinesis of the left v entricle with severe hypokinesis/akinesis of the inferior wall. Transmitral Doppler flow pattern is G rade I-abnormal relaxation pattern. RIGHT VENTRICLE The right ventricle is normal size. There is normal right ventricular wall thickness. The right ventr icular systolic function is normal. There is a pacemaker lead in the right ventricle. ATRIA The left atrium is borderline dilated. The right atrium size is normal. The interatrial septum is int act with no evidence for an atrial septal defect or patent foramen ovale as noted on 2-D or Doppler i maging. AORTIC VALVE The aortic valve is normal in structure and function. Doppler and Color Flow revealed no significant aortic regurgitation. There is no significant aortic valvular stenosis. Calculated aortic valve area is 1.93 cm2 with maximum pressure gradient of 12 mmHg and mean pressure gradient of 7 mmHg. MITRAL VALVE The mitral valve is normal in structure and function. There is no evidence of mitral valve prolapse. There is no mitral valve stenosis. Doppler and Color-flow revealed trace mitral regurgitation. TRICUSPID VALVE The tricuspid valve is normal in structure and function. Doppler and Color Flow revealed trace tricus pid regurgitation with an estimated PAP of 25 mmHg. There is no tricuspid valve stenosis. PULMONIC VALVE The pulmonic valve is not well visualized. Doppler and Color Flow revealed no pulmonic valvular regur gitation. There is no pulmonic valvular stenosis. GREAT VESSELS The aortic root is normal in size. The IVC is normal in size and collapses >50% with inspiration. PERICARDIAL EFFUSION There is no evidence of significant pericardial effusion. Critical Notification Critical Value: No <Conclusion> The systolic function is severely impaired. The Ejection Fraction is 30-35%. There is global hypokinesis of the left ventricle with severe hypokinesis/akinesis of the inferior wa ll. There is a pacemaker lead in the right ventricle. Signed by : Raimundo Lopez, Electronically Approved : 10/23/2021 12:16:32
== END ==
LOC: ECHO 09:50
PROVIDERS: ATTEND Internal Medicine Cardiovascular Disease
DX: I50.22 Chronic systolic (congestive) heart failure (principal)
CPT/HCPCS: 93306